=== PATIENT | female | born 1940 | race Caucasian/White ===

== ENCOUNTER 2017-09-29 21:16 | Inpatient (IN) | payer MEDICARE, MEDICAID ==
--- NOTE | 2017-09-29 21:50 | C.PDOC ---
History Of Present Illness 77 year old female is brought in by EMS accompanied by her daughter for evaluation. As per daughter she went to visit her mother today when she noticed she was not acting like herself and was slightly confused. Upon arrival patient is AOx3, a bit slow to respond. Patient is c/o mild cough and fever. Patient denies injury, fall, trauma, CP, SOB, weakness, numbness. Time Seen by Provider: 09/29/17 21:34 Chief Complaint (Nursing): Medical Clearance History Per: Patient, EMS History/Exam Limitations: no limitations Onset/Duration Of Symptoms: Days Current Symptoms Are (Timing): Still Present Recent travel outside of the [place]: No Additional History Per: Patient Past Medical History Reviewed: Historical Data, Nursing Documentation, Vital Signs Vital Signs: Last Vital Signs Temp 98.2 F 09/29/17 23:05 Pulse 89 09/29/17 23:47 Resp 28 H 09/29/17 23:47 BP 133/37 L 09/29/17 23:47 Pulse Ox 98 09/29/17 23:47 - Medical History PMH: Anxiety, Arthritis, Atrial Fibrillation, CAD, CHF, Depression, Diabetes, Fractures, HTN, Hypercholesterolemia, Peripheral Edema Denies: Alzheimer's Disease, Anemia, Asthma, Bipolar Disorder, Bronchitis, Cardia Arrhythmia, COPD, Crohn's Disease, Dementia, Diverticulitis, Emphysema, Gastritis, Gall Bladder Disease, HIV, Hyperthyroidism, Hypothyroidism, Kidney Stones, Migraine, Mitral Valve Prolapse, Multiple Sclerosis, Osteoporosis, Pancreatitis, Parkinson's Disease, Personality Disorder, Pneumonia, Pulmonary Embolism, Chronic Kidney Disease, Rheumatoid Arthritis, Schizophrenia, Seizures , Sickle Cell Disease, Sexually Transmitted Disease, Sleep Apnea, TIA Surgical History: Appendectomy (SURG AT AGE 13), Pacemaker Denies: CABG, Carotid Endarterectomy, Cholecystectomy, Coronary Stent, Tonsillectomy - [facility] Procedures INDIVID PSYCHOTHERAP NEC (08/12/14) INFLUENZA VACCINATION (02/16/14) NON-INVASIVE MECHANICAL VENTILATION (08/07/14) OTHER GROUP THERAPY (08/12/14) VACCINATION NEC (02/16/14) Family History: States: No Known Family Hx - Social History Hx Tobacco Use: No Hx Alcohol Use: No Hx Substance Use: No - Immunization History Hx Tetanus Toxoid Vaccination: No Hx Influenza Vaccination: No Hx Pneumococcal Vaccination: No Review Of Systems Constitutional: Positive for: Fever. Negative for: Chills Cardiovascular: Negative for: Chest Pain, Palpitations Respiratory: Positive for: Cough. Negative for: Shortness of Breath Gastrointestinal: Negative for: Nausea, Vomiting Skin: Negative for: Rash Neurological: Positive for: Confusion. Negative for: Weakness, Numbness, Headache, Dizziness Physical Exam - Physical Exam Appears: Non-toxic, No Acute Distress Skin: Warm, Dry Head: Normacephalic Eye(s): bilateral: Normal Inspection Oral Mucosa: Dry Neck: Supple Chest: Symmetrical, Other (defibrillator to the left chest wall) Cardiovascular: Rhythm Regular Respiratory: No Rales, Rhonchi (scattered at the base), No Wheezing Gastrointestinal/Abdominal: Bowel Sounds (active), Soft, No Tenderness, No Guarding, No Rebound Back: Normal Inspection Extremity: Pedal Edema (trace B/L), Capillary Refill (< 2 seconds) Extremity: Bilateral: Atraumatic Pulses: Left Dorsalis Pedis: Normal, Right Dorsalis Pedis: Normal Neurological/Psych: Oriented x3, Slow To Respond With Command, Other (non focal) Gait: Unable To Assess ED Course And Treatment - Laboratory Results Result Diagrams: 09/29/17 21:49 09/29/17 21:49 ECG: Interpreted By Me, Viewed By Me ECG Rhythm: Sinus Rhythm (93), Nonspecific Changes (atrial sensed ventricular paced rhytm) O2 Sat by Pulse Oximetry: 94 (ON RA) Pulse Ox Interpretation: Normal - Radiology CXR: Interpreted by Me, Viewed By Me CXR Interpretation: Yes: Other (pacer left chest). No: Infiltrates, Fracture, Pnemothorax Progress Note: Plan: - VBG. - CT head. - EKG. - Labs. - CXR. - Blood culture Disposition Discussed With : Roz Lunsford Comment: accepted the pt on his service and took over the care at 11:20 PM Doctor Will See Patient In The: Hospital Counseled Patient/Family Regarding: Studies Performed, Diagnosis - Disposition Disposition: HOSPITALIZED Disposition Time: 23:20 Condition: FAIR Forms: [facility] (Eritrean) - POA Present On Arrival: None - Clinical Impression Clinical Impression: Change in mental status, UTI (urinary tract infection), Renal insufficiency - Scribe Statement The provider has reviewed the documentation as recorded by the Scribe Hardeep Le All medical record entries made by the Scribe were at my direction and personally dictated by me. I have reviewed the chart and agree that the record accurately reflects my personal performance of the history, physical exam, medical decision making, and the department course for this patient. I have also personally directed, reviewed, and agree with the discharge instructions and disposition. Decision To Admit - Pt Status Changed To: Hospital Disposition Of: Inpatient - Admit Certification Admit to Inpatient:: After my assessment, the patient will require hospitalization for at least two midnights. This is because of the severity of symptoms shown, intensity of services needed, and/or the medical risk in this patient being treated as an outpatient. - InPatient: Physician Admission Certification: I certify that this patient requires 2 or more midnights of care for the following reason:: After my assessment, the patient will require hospitalization for at least two midnights. This is because of the severity of symptoms shown, intensity of services needed, and/or the medical risk in this patient being treated as an outpatient. - . Bed Request Type: Regular Admitting Physician: Roz Lunsford Patient Diagnosis: Change in mental status, UTI (urinary tract infection), Renal insufficiency
[2017-09-29 21:54] LABS: BASO % 0.2 % (0.0-2.0); EOS % 0.2 % (0.0-4.0); LYMPH # 0.9 K/uL (1.0-4.3); LYMPH % 9.1 % (20.0-40.0); MEAN CORPUSCULAR HEMOGLOBIN 31.8 pg (27.0-31.0); MEAN CORPUSCULAR HGB CONC 33.9 g/dL (33.0-37.0); MEAN PLATELET VOLUME 7.2 fL (7.2-11.7); MONO # 0.4 K/uL (0.0-0.8); MONO % 4.5 % (0.0-10.0); NEUT # 8.4 K/uL (1.8-7.0); PLATELET COUNT 214 K/uL (130-400); RBC 4.08 Mil/uL (3.80-5.20)
[2017-09-29 21:56] LABS: WHITE BLOOD COUNT 9.7 K/uL (4.8-10.8)
[2017-09-29] MEDS ORDERED: Sodium Chloride 0.9% 1,000 ML ONE (21:57)
[2017-09-29] MEDS: Sodium Chloride 0.9% 1,000 ML IV SCH (21:58)
[2017-09-29 22:02] LABS: VENOUS BLOOD GAS BASE EXCESS 10.8 mmol/L (0.0-2.0); VENOUS BLOOD GAS PCO2 58 mmHg (40-60); VENOUS BLOOD GAS PO2 22 mm/Hg (30-55); VENOUS BLOOD PH 7.42 (7.32-7.43)
[2017-09-29] MEDS ORDERED: Piperacillin/Tazobact 3.375 gm 100 ML IVPB STA (22:06)
[2017-09-29 22:07] LABS: CALCIUM 10.1 mg/dl (8.6-10.4)
[2017-09-29 22:08] LABS: ALB/GLOB RATIO 0.9 (1.0-2.1); ALBUMIN 4.2 g/dL (3.5-5.0)
[2017-09-29] MEDS ORDERED: Vancomycin 1 gm/NS 200 ml 1 GM/200 ML BAG IVPB ONE (22:15)
[2017-09-29] MEDS ORDERED: Vancomycin 1 GM 1 GM/250 ML BAG IVPB SCH (22:15)
[2017-09-29 22:23] LABS: ANISOCYTOSIS SLIGHT; BANDS 1 % (0-2); HYPOCHROMIC SLIGHT; LARGE PLATELETS PRESENT; LYMPHOCYTE 10 % (20-40); MONOCYTE 4 % (0-10); NEUTROPHIL 85 % (50-75); PLATELET ESTIMATE NORMAL (NORMAL); TOTAL CELLS COUNTED 100
[2017-09-29] MEDS ORDERED: Piperacillin/Tazobact 3.375 gm 100 ML IVPB ONE (22:27)
[2017-09-29 22:57] LABS: URINE BACTERIA FEW (<OCC); URINE BILIRUBIN NEGATIVE (NEGATIVE); URINE BLOOD 3+ (NEGATIVE); URINE CLARITY Hazy (Clear); URINE COLOR Amber (YELLOW); URINE GLUCOSE (UA) NORMAL (Normal); URINE LEUKOCYTE ESTERASE 2+ Leu/uL (Negative); URINE PROTEIN 2+ mg/dL (NEGATIVE); URINE UROBILINOGEN NORMAL mg/dL (0.2-1.0)
[2017-09-29 22:58] LABS: INR 1.5; PROTHROMBIN TIME 15.9 SECONDS (9.7-12.2)
--- NOTE | 2017-09-29 23:06 | CT ---
EXAM: CT Head Without Intravenous Contrast CLINICAL HISTORY: 77 years old, female; Pain; Headache; Patient HX: 15; Additional info: Change mental status TECHNIQUE: Axial computed tomography images of the head/brain without intravenous contrast. All CT scans at this facility use one or more dose reduction techniques, viz.: automated exposure control; ma/kV adjustment per patient size (including targeted exams where dose is matched to indication; i.e. head); or iterative reconstruction technique. COMPARISON: CT - HEAD W/O CONTRAST 2014-08-12 11:23 FINDINGS: Brain: Mild atrophy. No intracranial hemorrhage. No mass. Few scattered foci of decreased attenuation within periventricular/subcortical white matter. Probable chronic lacunar infarct about LEFT basal ganglia. No definite edema. Ventricles: No hydrocephalus. Bones/joints: No acute fracture. Soft tissues: Unremarkable. Vasculature: Minimal atherosclerotic disease of intracranial arteries. Sinuses: No acute sinusitis. Mastoid air cells: No mastoid effusion. Orbits: Unremarkable as visualized. IMPRESSION: 1. Nonspecific white matter changes. Acute infarction may be CT occult within first 24 hours. If a focal deficit persists, consider followup CT or MRI for further evaluation. 2. Incidental/non-acute findings are described above.
[2017-09-29] MEDS ORDERED: Sod Polystyrene Sulf 15 gm/60 ml Susp PO ONE (23:39)
[2017-09-30] MEDS ORDERED: Albuterol-Ipratrop 3 mg / 0.5 (3 ml) UD ONE (02:11)
[2017-09-30] MEDS: Albuterol-Ipratrop 3 mg / 0.5 (3 ml) UD INH SCH ×5 (02:25→20:46)
[2017-09-30] MEDS: Piperacill/Tazo 2.25gm in Dex 2.25 GM/50 ML BAG IVPB SCH ×3 (05:36→22:53)
--- NOTE | 2017-09-30 08:25 | RAD ---
PROCEDURE: CHEST RADIOGRAPH, 1 VIEW HISTORY: SOB COMPARISON: Chest radiographs 08/11/2014. FINDINGS: LUNGS: Diminished inspiratory volume noted. There is resulting crowding of bilateral basilar bronchovascular markings. No interval airspace disease otherwise evident however. PLEURA: No pneumothorax or pleural fluid seen. CARDIOVASCULAR: Normal cardiac size once again. Pacemaker/implanted defibrillator replaced by is different generator the left pectoralis region and 2 additional leads extending into the heart region. OSSEOUS STRUCTURES: No significant abnormalities. VISUALIZED UPPER ABDOMEN: Normal. OTHER FINDINGS: None. IMPRESSION: Diminished inspiratory volume noted. No interval infiltrate bilaterally. Pacemaker exchange noted.
[2017-09-30 08:40] LABS: BASO % 0.4 % (0.0-2.0); EOS % 0.6 % (0.0-4.0); HEMOGLOBIN 11.5 g/dL (11.0-16.0); LYMPH # 1.2 K/uL (1.0-4.3); LYMPH % 14.3 % (20.0-40.0); MEAN CELL VOLUME 94.6 fL (81.0-99.0); MEAN CORPUSCULAR HGB CONC 33.8 g/dL (33.0-37.0); MEAN PLATELET VOLUME 7.7 fL (7.2-11.7); MONO # 0.8 K/uL (0.0-0.8); MONO % 9.1 % (0.0-10.0); NEUT # 6.3 K/uL (1.8-7.0); NEUT % 75.6 % (50.0-75.0); NRBC % 0.1 % (0.0-2.0); RBC 3.59 Mil/uL (3.80-5.20); RED CELL DISTRIBUTION WIDTH 14.2 % (11.5-14.5); WHITE BLOOD COUNT 8.4 K/uL (4.8-10.8)
[2017-09-30 08:53] LABS: ALBUMIN 3.3 g/dL (3.5-5.0); CALCIUM 9.3 mg/dl (8.6-10.4)
[2017-09-30] MEDS: Sodium Chloride 0.9% 1,000 ML IV SCH ×3 (10:33→18:32)
[2017-09-30] MEDS: Venlafaxine 75 mg ER Cap PO SCH (10:38)
[2017-09-30] MEDS: Venlafaxine 150 mg ER Cap PO SCH (18:30)
--- NOTE | 2017-09-30 19:06 | CP.PCM.HP ---
History of Present Illness - History of Present Illness History of Present Illness: Chief complain: Altered mental status HPI: 77-year-old female with a history of hypertension diabetes Crory artery disease high cholesterol atrial fibrillation pacemaker, V. tach and is status post AICD , anxiety, depression. Arthritis, weakness and dementia. Patient was in her usual state of health. Yesterday she was started having some slowing in her activities, evening time she was not responding. She was not eating well. According to the patient's daughter while she came to check her up in the house she was on the bed, but unable to get up. She was trying to get out of the chair, see slide and fell on the floor. But the patient's family was next to her, able to grab her and place her on the bed. Called ambulance, brought into the emergency room. Patient was continued to have altered mental status in the emergency room. Evaluation was done. CAT scan were negative Suspected urinary tract infection, needed hospitalization. Today morning patient was feeling well. She was more awake and responding. She has no chest pain. Denies any nausea vomiting no fever noted Past medical history: Hypertension, diabetes, high cholesterol, CAD, atrial fibrillation, V. tach, status post ACD, depression and anxiety Allergies no known drug allergy Personal history: Lifelong nonsmoker nonalcoholic Patient lives in the family members. Surgical history: Bilateral knee replacement. Pacemaker ACD Family history noncontributory Review of systems noted from the chart. Mild headache. Dementia noted, no chest pain, shortness of breath noted occasionally. Complaining of generalized body pain. Patient had altered mental status yesterday, currently feeling well. Examination: Vital signs stable. Chest good air entry Regular heart sound nontender abdomen no pedal edema [employer] alert awake oriented Patient is now alert awake, oriented to place and person and time Labs reviewed Urine analysis showing evidence of elevated WBC, positive bacteria CAT scan of the head is negative, chest x-ray nonspecific Assessment and recommendation: 77-year-old female with a history of hypertension diabetes high cholesterol CAD status post ACD. Atrial fibrillation. Admitted now with a possible urinary tract infection, contributing the altered mental status. Improving at this time, on ciprofloxacin empirical antibiotic. Will get the urine culture. Urine analysis. Patient will need physical therapy. Awaiting further culture and will follow the patient I spoke to the patient's family in detail Present on Admission - Present on Admission Any Indicators Present on Admission: No History of DVT/PE: No History of Uncontrolled Diabetes: No Urinary Catheter: No Decubitus Ulcer Present: No Past Patient History - Infectious Disease Hx of Infectious Diseases: None - Tetanus Immunizations Tetanus Immunization: Unknown - Past Medical History & Family History Past Medical History?: Yes - Past Social History Smoking Status: Never Smoked - CARDIAC Hx Atrial Fibrillation: Yes Hx Cardia Arrhythmia: No Hx Congestive Heart Failure: Yes Hx Hypercholesterolemia: Yes Hx Hypertension: Yes Hx Mitral Valve Prolapse: No Hx Pacemaker: Yes Hx Peripheral Edema: Yes - PULMONARY Hx Asthma: No Hx Bronchitis: No Hx Chronic Obstructive Pulmonary Disease (COPD): No Hx Emphysema: No Hx Pneumonia: No Hx Pulmonary Embolism: No Hx Sleep Apnea: No - NEUROLOGICAL Hx Alzheimer's Disease: No Hx Dementia: No Hx Migraine: No Hx Multiple Sclerosis: No Hx Parkinson's Disease: No Hx Seizures: No Hx Transient Ischemic Attacks (TIA): No - HEENT Hx HEENT Problems: No - RENAL Hx Chronic Kidney Disease: No Hx Kidney Stones: No - ENDOCRINE/METABOLIC Hx Hyperthyroidism: No Hx Hypothyroidism: No - HEMATOLOGICAL/ONCOLOGICAL Hx Anemia: No Hx Human Immunodeficiency Virus (HIV): No Hx Sickle Cell Disease: No - INTEGUMENTARY Hx Dermatological Problems: No - MUSCULOSKELETAL/RHEUMATOLOGICAL Hx Arthritis: Yes Hx Falls: Yes Hx Fractures: Yes Hx Osteoporosis: No Hx Rheumatoid Arthritis: No - GASTROINTESTINAL Hx Crohn's Disease: No Hx Diverticulitis: No Hx Gall Bladder Disease: No Hx Gastritis: No Hx Pancreatitis: No - GENITOURINARY/GYNECOLOGICAL Hx Sexually Transmitted Disorders: No - PSYCHIATRIC Hx Anxiety: Yes Hx Bipolar Disorder: No Hx Depression: Yes Hx Schizophrenia: No Hx Substance Use: No - SURGICAL HISTORY Hx Appendectomy: Yes (SURG AT AGE 13) Hx Carotid Endarterectomy: No Hx Cholecystectomy: No Hx Coronary Artery Bypass Graft: No Hx Coronary Stent: No Hx Tonsillectomy: No - ANESTHESIA Hx Anesthesia: Yes Hx Anesthesia Reactions: No Hx Malignant Hyperthermia: No Meds Allergies/Adverse Reactions: Allergies Allergy/AdvReac Type Severity Reaction Status Date / Time No Known Allergies Allergy Verified 09/29/17 21:25 Results - Vital Signs Recent Vital Signs: Last Vital Signs Temp 99.3 F 09/30/17 16:00 Pulse 92 H 09/30/17 16:00 Resp 20 09/30/17 16:00 BP 107/68 05/28/18 18:31 Pulse Ox 96 09/30/17 16:00 - Labs Result Diagrams: 09/30/17 08:36 09/30/17 08:22 Labs: Laboratory Results - last 24 hr 09/29/17 09/29/17 09/29/17 21:30 21:49 21:49 WBC 9.7 D RBC 4.08 Hgb 13.0 Hct 38.4 MCV 94.0 MCH 31.8 H MCHC 33.9 RDW 14.0 Plt Count 214 MPV 7.2 Neut % (Auto) 86.0 H Lymph % (Auto) 9.1 L Menard % (Auto) 4.5 Eos % (Auto) 0.2 Baso % (Auto) 0.2 Neut # (Auto) 8.4 H Lymph # (Auto) 0.9 L Menard # (Auto) 0.4 Eos # (Auto) 0.0 Baso # (Auto) 0.0 Neutrophils % (Manual) 85 H Band Neutrophils % 1 Lymphocytes % (Manual) 10 L Monocytes % (Manual) 4 Platelet Estimate Normal Large Platelets Present Hypochromasia (manual) Slight Anisocytosis (manual) Slight PT INR APTT pO2 VBG pH VBG pCO2 VBG HCO3 VBG Total CO2 VBG O2 Sat (Calc) VBG Base Excess VBG Potassium Glucose Lactate Sodium 134 Potassium 5.7 H Chloride 90 L Carbon Dioxide 31 H Anion Gap 19 BUN 28 H Creatinine 1.9 H Est GFR ( Amer) 31 Est GFR (Non-Af Amer) 26 POC Glucose (mg/dL) 223 H Random Glucose 205 H Calcium 10.1 Magnesium 2.1 Total Bilirubin 1.2 AST 60 H ALT 26 Alkaline Phosphatase 87 Total Protein 8.9 H Albumin 4.2 Globulin 4.8 H Albumin/Globulin Ratio 0.9 L Venous Blood Potassium Urine Color Urine Clarity Urine pH Ur Specific Hilbert Urine Protein Urine Glucose (UA) Urine Ketones Urine Blood Urine Nitrate Urine Bilirubin Urine Urobilinogen Ur Leukocyte Esterase Urine WBC (Auto) Urine RBC (Auto) Urine Bacteria 09/29/17 09/29/17 09/29/17 21:58 22:46 22:46 WBC RBC Hgb Hct MCV MCH MCHC RDW Plt Count MPV Neut % (Auto) Lymph % (Auto) Menard % (Auto) Eos % (Auto) Baso % (Auto) Neut # (Auto) Lymph # (Auto) Menard # (Auto) Eos # (Auto) Baso # (Auto) Neutrophils % (Manual) Band Neutrophils % Lymphocytes % (Manual) Monocytes % (Manual) Platelet Estimate Large Platelets Hypochromasia (manual) Anisocytosis (manual) PT 15.9 H INR 1.5 APTT 42 H pO2 22 L VBG pH 7.42 VBG pCO2 58 VBG HCO3 31.8 VBG Total CO2 39.4 H VBG O2 Sat (Calc) 34.0 L VBG Base Excess 10.8 H VBG Potassium 4.1 Glucose 199 H Lactate 3.8 H Sodium 136.0 Potassium Chloride 96.0 L Carbon Dioxide Anion Gap BUN Creatinine Est GFR ( Amer) Est GFR (Non-Af Amer) POC Glucose (mg/dL) Random Glucose Calcium Magnesium Total Bilirubin AST ALT Alkaline Phosphatase Total Protein Albumin Globulin Albumin/Globulin Ratio Venous Blood Potassium 4.1 Urine Color Urvashi Urine Clarity Hazy Urine pH 6.0 Ur Specific Hilbert 1.012 Urine Protein 2+ H Urine Glucose (UA) Normal Urine Ketones Negative Urine Blood 3+ H Urine Nitrate Negative Urine Bilirubin Negative Urine Urobilinogen Normal Ur Leukocyte Esterase 2+ H Urine WBC (Auto) 399 H Urine RBC (Auto) 325 H Urine Bacteria Few H 09/30/17 09/30/17 08:22 08:36 WBC 8.4 RBC 3.59 L Hgb 11.5 Hct 34.0 MCV 94.6 MCH 32.0 H MCHC 33.8 RDW 14.2 Plt Count 169 MPV 7.7 Neut % (Auto) 75.6 H Lymph % (Auto) 14.3 L Menard % (Auto) 9.1 Eos % (Auto) 0.6 Baso % (Auto) 0.4 Neut # (Auto) 6.3 Lymph # (Auto) 1.2 Menard # (Auto) 0.8 Eos # (Auto) 0.0 Baso # (Auto) 0.0 Neutrophils % (Manual) Band Neutrophils % Lymphocytes % (Manual) Monocytes % (Manual) Platelet Estimate Large Platelets Hypochromasia (manual) Anisocytosis (manual) PT INR APTT pO2 VBG pH VBG pCO2 VBG HCO3 VBG Total CO2 VBG O2 Sat (Calc) VBG Base Excess VBG Potassium Glucose Lactate Sodium 138 Potassium 4.0 Chloride 98 Carbon Dioxide 29 Anion Gap 15 BUN 28 H Creatinine 2.0 H Est GFR ( Amer) 29 Est GFR (Non-Af Amer) 24 POC Glucose (mg/dL) Random Glucose 137 H Calcium 9.3 Magnesium Total Bilirubin 0.5 AST 31 ALT 25 Alkaline Phosphatase 72 Total Protein 7.3 Albumin 3.3 L D Globulin 3.4 Albumin/Globulin Ratio 1.0 Venous Blood Potassium Urine Color Urine Clarity Urine pH Ur Specific Hilbert Urine Protein Urine Glucose (UA) Urine Ketones Urine Blood Urine Nitrate Urine Bilirubin Urine Urobilinogen Ur Leukocyte Esterase Urine WBC (Auto) Urine RBC (Auto) Urine Bacteria
[2017-10-01] MEDS: Albuterol-Ipratrop 3 mg / 0.5 (3 ml) UD INH SCH ×4 (01:40→20:44)
[2017-10-01] MEDS: Sodium Chloride 0.9% 1,000 ML IV SCH (03:45)
[2017-10-01] MEDS: Piperacill/Tazo 2.25gm in Dex 2.25 GM/50 ML BAG IVPB SCH ×3 (07:27→21:51)
[2017-10-01] MEDS: Venlafaxine 75 mg ER Cap PO SCH (10:09)
[2017-10-01] MEDS: Venlafaxine 150 mg ER Cap PO SCH (17:47)
--- NOTE | 2017-10-01 20:41 | CP.PCM.PN ---
Subjective - Date & Time of Evaluation Date of Evaluation: 10/01/17 Time of Evaluation: 20:38 - Subjective Subjective: Patient now is more awake and responding. Comfortable. Complaining of pain in the lower pelvic area. Denies any chest pain. No shortness of breath. Edema in the legs noted. Venous access is currently poorly On examination: Chest good air entry bilaterally, not in any distress. Saturation is normal. Vital signs are stable, except her blood pressure is on the low side. Labs reviewed Blood culture showing evidence of Enterococcus faecalis, but urine culture is pending. Repeat analysis of the urine and urine culture pending. Currently patient is on Zosyn. Assessment and recommendation: 77-year-old female with a history of heart disease heart failure ACD and pacemaker. Anxiety depression. Hypertension. Admitted with a chronic pedal edema Patient admitted to the hospital with severe urinary tract infection, acute complicated with bacteremia. And also mild hypotension stable at this time. Possible septic shock could not be ruled out at that time, currently improving. Patient is now having enterococcus bacteremia, will get a echocardiogram. To rule out endocarditis. Appropriate antibiotic as per the infectious disease evaluation. Meanwhile most likely cause for this enterococcus is urinary tract infection. We'll follow the patient. Physical therapy order. Out of bed to chair tomorrow. Spoke to the patient's daughter in detail Objective - Vital Signs/Intake and Output Vital Signs (last 24 hours): Temp Pulse Resp BP Pulse Ox 98.1 F 87 20 110/74 96 10/01/17 16:00 10/01/17 16:00 10/01/17 16:00 10/01/17 17:48 10/01/17 16:00 Intake and Output: 10/01/17 10/02/17 18:59 06:59 Intake Total 2069 Balance 2069 - Medications Medications: Current Medications Acetaminophen (Tylenol 325mg Tab) 650 mg PO Q8 PRN PRN Reason: pain Albuterol/Ipratropium (Duoneb 3 Mg/0.5 Mg (3 Ml) Ud) 3 ml INH RQ6 [facility] Last Admin: 10/01/17 13:52 Dose: Not Given Apixaban (Eliquis) 2.5 mg PO BID [facility] Last Admin: 10/01/17 17:48 Dose: 2.5 mg Enalapril Maleate (Vasotec) 10 mg PO DAILY [facility] Last Admin: 10/01/17 10:09 Dose: Not Given Piperacillin Sod/Tazobactam Sod (Zosyn 2.25 Gm Iv Premix) 2.25 gm in 50 mls @ 100 mls/hr IVPB Q8 ALEX PRN Reason: Protocol Last Admin: 10/01/17 14:43 Dose: 100 mls/hr Lorazepam (Ativan) 0.5 mg PO TID PRN PRN Reason: Agitation Metoprolol Tartrate (Lopressor) 25 mg PO BID [facility] Last Admin: 10/01/17 17:48 Dose: 25 mg Mirtazapine (Remeron) 45 mg PO HS [facility] Last Admin: 09/30/17 22:52 Dose: 45 mg Pantoprazole Sodium (Protonix Inj) 40 mg IVP DAILY [facility] Last Admin: 10/01/17 10:08 Dose: 40 mg Rosuvastatin Calcium (Crestor) 10 mg PO HS [facility] Last Admin: 09/30/17 21:31 Dose: 10 mg Venlafaxine HCl (Effexor Xr) 75 mg PO QAM [facility] Last Admin: 10/01/17 10:09 Dose: 75 mg Venlafaxine HCl (Effexor Xr) 150 mg PO QPM [facility] Last Admin: 10/01/17 17:47 Dose: 150 mg - Labs Labs: 09/30/17 08:36 09/30/17 08:22 PT 15.9 SECONDS (9.7-12.2) H 09/29/17 22:46 INR 1.5 09/29/17 22:46 APTT 42 SECONDS (21-34) H 09/29/17 22:46
[2017-10-01] MEDS ORDERED: DAPTOmycin 500 mg Inj (Cubicin) IV SCH (23:00)
[2017-10-02] MEDS: Albuterol-Ipratrop 3 mg / 0.5 (3 ml) UD INH SCH ×4 (01:43→20:03)
[2017-10-02] MEDS: Piperacill/Tazo 2.25gm in Dex 2.25 GM/50 ML BAG IVPB SCH ×3 (06:02→21:29)
[2017-10-02 07:21] LABS: BASO % 0.7 % (0.0-2.0); EOS # 0.1 K/uL (0.0-0.7); EOS % 2.9 % (0.0-4.0); HEMOGLOBIN 10.7 g/dL (11.0-16.0); LYMPH # 0.9 K/uL (1.0-4.3); LYMPH % 18.2 % (20.0-40.0); MEAN CELL VOLUME 93.3 fL (81.0-99.0); MEAN CORPUSCULAR HEMOGLOBIN 32.1 pg (27.0-31.0); MEAN CORPUSCULAR HGB CONC 34.4 g/dL (33.0-37.0); MEAN PLATELET VOLUME 7.7 fL (7.2-11.7); MONO # 0.5 K/uL (0.0-0.8); MONO % 10.8 % (0.0-10.0); NEUT # 3.3 K/uL (1.8-7.0); NEUT % 67.4 % (50.0-75.0); RBC 3.35 Mil/uL (3.80-5.20); RED CELL DISTRIBUTION WIDTH 13.8 % (11.5-14.5); WHITE BLOOD COUNT 4.9 K/uL (4.8-10.8)
[2017-10-02 07:47] LABS: ALBUMIN 3.4 g/dL (3.5-5.0); CALCIUM 8.1 mg/dl (8.6-10.4)
[2017-10-02] MEDS: Venlafaxine 75 mg ER Cap PO SCH (10:42)
--- NOTE | 2017-10-02 11:32 | CP.PCM.CON ---
History of Present Illness - History of Present Illness History of Present Illness: INFECTIOUS DISEASE CONSULT; HPI; .77-year-old female with history of multiple medical problems including diabetes , CAD, atrial fibrillation S/P CABG/AICD, coronary stent, CHF, arthritis, hypertension, hypercholesterolemia and anxiety problems was admitted by the emergency room brought in by family members for altered mental status and elevated temperatures. A presumptive diagnosis of UTI was entertained as patient had pyuria and also elevated BUN and creatinine of 28/2.0. Infectious disease consultation requested by private [facility] as BLOOD CULTURES came back positive for gram-positive cocci-enterococcus species. Patient was started on IV Zosyn 2.25 mg IV every 8 hourly by the private [facility]. DAPTOMYCIN 6 MG/KG iv PIGGYBACK WAS INITIATED IN VIEW GRAM-POSITIVE BACTEREMIA ? R/O VRE. PATIENT COMPLAINS OF ABDOMINAL PAIN,MID ABDOMEN AND SUPRAPUBIC. PATIENT DENIES ANY NAUSEA OR VOMITING BUT COMPLAINS OF POOR APPETITE. PATIENT DENIES ANY COUGH OR EXPECTORATION. COMPLAINS OF CONSTIPATION AND STATES HAS NOT HAD A BOWEL MOVEMENT FOR PAST 2 DAYS.. PATIENT DENIES HEADACHE OR DENIES ANY RECENT UPPER RESPIRATORY TRACT INFECTION OR SORE THROAT. DENIES ANY TRAVEL OR SICK CONTACTS. iNITIALLY CT OF THE HEAD WITHOUT CONTRAST WAS NONSPECIFIC WHITE MATTER CHANGES. CHEST X-RAY NO ACUTE INFILTRATE, +VE PACEMAKER IN PLACE. PMH: Anxiety, Arthritis, Atrial Fibrillation, CAD, CHF, Depression, Diabetes, Fractures, HTN, Hypercholesterolemia, Peripheral Edema Denies: Alzheimer's Disease, Anemia, Asthma, Bipolar Disorder, Bronchitis, Cardia Arrhythmia, COPD, Crohn's Disease, Dementia, Diverticulitis, Emphysema, Gastritis, Gall Bladder Disease, HIV, Hyperthyroidism, Hypothyroidism, Kidney Stones, Migraine, Mitral Valve Prolapse, Multiple Sclerosis, Osteoporosis, Pancreatitis, Parkinson's Disease, Personality Disorder, Pneumonia, Pulmonary Embolism, Chronic Kidney Disease, Rheumatoid Arthritis, Schizophrenia, Seizures , Sickle Cell Disease, Sexually Transmitted Disease, Sleep Apnea, TIA Surgical History: Appendectomy (SURG AT AGE 13), Pacemaker Denies: CABG, Carotid Endarterectomy, Cholecystectomy, Coronary Stent, Tonsillectomy - [facility] Procedures INDIVID PSYCHOTHERAP NEC (08/12/14) INFLUENZA VACCINATION (02/16/14) NON-INVASIVE MECHANICAL VENTILATION (08/07/14) OTHER GROUP THERAPY (08/12/14) VACCINATION NEC (02/16/14) Family History: States: No Known Family Hx - Social History Hx Tobacco Use: No Hx Alcohol Use: No Hx Substance Use: No - Immunization History Hx Tetanus Toxoid Vaccination: No Hx Influenza Vaccination: No Hx Pneumococcal Vaccination: No. ALLERGY;NKA.. Review of Systems - Constitutional Constitutional: Chills, Fever, Lethargy - EENT Eyes: absent: Change in Vision, Photophobia Nose/Mouth/Throat: absent: Sore Throat - Cardiovascular Cardiovascular: Rapid Heart Rate. absent: Chest Pain, Dyspnea - Respiratory Respiratory: Dyspnea. absent: Cough, Hemoptysis - Gastrointestinal Gastrointestinal: Abdominal Pain, Constipation - Genitourinary Genitourinary: Pyuria, Urinary Hesitance - Musculoskeletal Musculoskeletal: Muscle Cramps - Neurological Neurological: Disequilibrium. absent: Headaches - Psychiatric Psychiatric: Anxiety, Difficulty Concentrating - Hematologic/Lymphatic Hematologic: As Per HPI. absent: Lymphadenopathy Past Patient History - Infectious Disease Hx of Infectious Diseases: None - Tetanus Immunizations Tetanus Immunization: Unknown - Past Medical History & Family History Past Medical History?: Yes - Past Social History Smoking Status: Never Smoked - CARDIAC Hx Atrial Fibrillation: Yes Hx Cardia Arrhythmia: No Hx Congestive Heart Failure: Yes Hx Hypercholesterolemia: Yes Hx Hypertension: Yes Hx Mitral Valve Prolapse: No Hx Pacemaker: Yes Hx Peripheral Edema: Yes - PULMONARY Hx Asthma: No Hx Bronchitis: No Hx Chronic Obstructive Pulmonary Disease (COPD): No Hx Emphysema: No Hx Pneumonia: No Hx Pulmonary Embolism: No Hx Sleep Apnea: No - NEUROLOGICAL Hx Alzheimer's Disease: No Hx Dementia: No Hx Migraine: No Hx Multiple Sclerosis: No Hx Parkinson's Disease: No Hx Seizures: No Hx Transient Ischemic Attacks (TIA): No - HEENT Hx HEENT Problems: No - RENAL Hx Chronic Kidney Disease: No Hx Kidney Stones: No - ENDOCRINE/METABOLIC Hx Hyperthyroidism: No Hx Hypothyroidism: No - HEMATOLOGICAL/ONCOLOGICAL Hx Anemia: No Hx Human Immunodeficiency Virus (HIV): No Hx Sickle Cell Disease: No - INTEGUMENTARY Hx Dermatological Problems: No - MUSCULOSKELETAL/RHEUMATOLOGICAL Hx Arthritis: Yes Hx Falls: Yes Hx Fractures: Yes Hx Osteoporosis: No Hx Rheumatoid Arthritis: No - GASTROINTESTINAL Hx Crohn's Disease: No Hx Diverticulitis: No Hx Gall Bladder Disease: No Hx Gastritis: No Hx Pancreatitis: No - GENITOURINARY/GYNECOLOGICAL Hx Sexually Transmitted Disorders: No - PSYCHIATRIC Hx Anxiety: Yes Hx Bipolar Disorder: No Hx Depression: Yes Hx Schizophrenia: No Hx Substance Use: No - SURGICAL HISTORY Hx Appendectomy: Yes (SURG AT AGE 13) Hx Carotid Endarterectomy: No Hx Cholecystectomy: No Hx Coronary Artery Bypass Graft: No Hx Coronary Stent: No Hx Tonsillectomy: No - ANESTHESIA Hx Anesthesia: Yes Hx Anesthesia Reactions: No Hx Malignant Hyperthermia: No Meds Allergies/Adverse Reactions: Allergies Allergy/AdvReac Type Severity Reaction Status Date / Time No Known Allergies Allergy Verified 09/29/17 21:25 - Medications Medications: Current Medications Acetaminophen (Tylenol 325mg Tab) 650 mg PO Q8 PRN PRN Reason: pain Last Admin: 10/01/17 21:00 Dose: 650 mg Albuterol/Ipratropium (Duoneb 3 Mg/0.5 Mg (3 Ml) Ud) 3 ml INH RQ6 ON [facility] OF [facility] Last Admin: 10/02/17 07:29 Dose: Not Given Apixaban (Eliquis) 2.5 mg PO BID ON [facility] OF [facility] Last Admin: 10/02/17 09:57 Dose: 2.5 mg Docusate Sodium (Colace) 100 mg PO BID ON [facility] OF [facility] Enalapril Maleate (Vasotec) 10 mg PO DAILY ON [facility] OF [facility] Last Admin: 10/02/17 09:56 Dose: 10 mg Piperacillin Sod/Tazobactam Sod (Zosyn 2.25 Gm Iv Premix) 2.25 gm in 50 mls @ 100 mls/hr IVPB Q8 [facility]LEX PRN Reason: Protocol Last Admin: 10/02/17 06:02 Dose: 100 mls/hr Daptomycin 750 mg/ Sodium (Chloride) 100 mls @ 200 mls/hr IV Q24H ON [facility] OF [facility] Stop: 10/06/17 23:01 Last Admin: 10/01/17 23:11 Dose: 200 mls/hr Lorazepam (Ativan) 0.5 mg PO TID PRN PRN Reason: Agitation Last Admin: 10/02/17 01:10 Dose: 0.5 mg Metoprolol Tartrate (Lopressor) 25 mg PO BID [facility] Last Admin: 10/01/17 17:48 Dose: 25 mg Mirtazapine (Remeron) 45 mg PO HS [facility] Last Admin: 10/01/17 22:00 Dose: 45 mg Pantoprazole Sodium (Protonix Inj) 40 mg IVP DAILY [facility] Last Admin: 10/02/17 10:00 Dose: 40 mg Rosuvastatin Calcium (Crestor) 10 mg PO HS [facility] Last Admin: 10/01/17 21:50 Dose: 10 mg Venlafaxine HCl (Effexor Xr) 75 mg PO QAM [facility] Last Admin: 10/02/17 10:42 Dose: 75 mg Venlafaxine HCl (Effexor Xr) 150 mg PO QPM [facility] OF [facility] Last Admin: 10/01/17 17:47 Dose: 150 mg Physical Exam - Constitutional Appears: No Acute Distress - Head Exam Head Exam: NORMAL INSPECTION - Eye Exam Eye Exam: EOMI, PERRL - ENT Exam ENT Exam: Normal Oropharynx - Respiratory Exam Respiratory Exam: Clear to Auscultation Bilateral - Cardiovascular Exam Cardiovascular Exam: Irregular Rhythm, +S1, +S2 - GI/Abdominal Exam GI & Abdominal Exam: Normal Bowel Sounds, Soft, Tenderness (UMBLICAL AND SUPRAPUBIC.) - Extremities Exam Extremities exam: Positive for: pedal edema (2+), pedal pulses present. Negative for: calf tenderness - Neurological Exam Neurological exam: Alert, CN II-XII Intact, Oriented x3, Reflexes Normal - Psychiatric Exam Psychiatric exam: Normal Mood - Skin Skin Exam: Normal Color, Warm Results - Vital Signs Recent Vital Signs: Last Vital Signs Temp 97.6 F 10/02/17 08:00 Pulse 90 10/02/17 08:00 Resp 20 10/02/17 08:00 BP 140/87 10/02/17 09:56 Pulse Ox 95 10/02/17 08:00 - Labs Result Diagrams: 10/02/17 07:15 10/02/17 07:15 Labs: Laboratory Results - last 24 hr 10/02/17 10/02/17 07:15 07:15 WBC 4.9 RBC 3.35 L Hgb 10.7 L Hct 31.2 L MCV 93.3 MCH 32.1 H MCHC 34.4 RDW 13.8 Plt Count 186 MPV 7.7 Neut % (Auto) 67.4 Lymph % (Auto) 18.2 L Rock % (Auto) 10.8 H Eos % (Auto) 2.9 Baso % (Auto) 0.7 Neut # (Auto) 3.3 Lymph # (Auto) 0.9 L Rock # (Auto) 0.5 Eos # (Auto) 0.1 Baso # (Auto) 0.0 ESR 121 H Sodium 142 Potassium 3.9 Chloride 106 Carbon Dioxide 27 Anion Gap 13 BUN 18 H Creatinine 1.5 H Est GFR ( Amer) 41 Est GFR (Non-Af Amer) 33 Random Glucose 141 H Calcium 8.1 L Total Bilirubin 0.4 AST 29 ALT 20 Alkaline Phosphatase 68 C-Reactive Protein 71.20 H Total Protein 7.0 Albumin 3.4 L Globulin 3.5 Albumin/Globulin Ratio 1.0 - Imaging and Cardiology CT scan - head Status: Report reviewed by me (nonspecific white matter changes.) Assessment & Plan (1) Change in mental status Assessment and Plan: CT HEAD UNREMARKABLE WHITE MATTER CHANGES. pATIENT TODAY AND MORE RESPONSIVE AND ANSWERING SOME QUESTIONS APPROPRIATELY. Status: Acute (2) Enterococcal sepsis Assessment and Plan: BLOOD CULTURE 2:2 SETS +VE ENTEROCOCCAL FAECALIS SOURCE OF SEPSIS NOT CLEAR ? VS GI. Status: Acute (3) UTI (urinary tract infection) Assessment and Plan: UA 09/29/17 with pyuria and microscopic hematuria. Urine culture not sent. Urine culture REORDERED NOTED --PENDING Status: Acute (4) Renal insufficiency Assessment and Plan: CREATININE 2.0/ bun 28 GFR ; 24 MONITOR RENAL FUNCTIONS. iv FLUIDS PER pmd. Status: Acute (5) DM type 2 (diabetes mellitus, type 2) Status: Chronic Priority: Medium (6) HTN (hypertension) Status: Chronic Priority: Medium (7) Obesity Status: Chronic (8) Acute renal insufficiency Status: Acute Priority: High - Assessment and Plan (Free Text) Plan: PANCULTURES. ESR. CRP. MRSA SCREEN CONTINUE iv ZOSYN 2.25 iv PIGGYBACK EVERY 8 HOURLY 10/01/17. IV DAPTOMYCIN 6 MG/KG iv PIGGYBACK EVERY 36 HOURLY. 10/01/17. 2D- ECHO TO RULE OUT VEGETATIONS. c2, c4, ch 50 LEVELS RHEUMATOID FACTOR. FOLLOW-UP CULTURES TO ADJUST ANTIBIOTICS. WILL FOLLOW ALONG WITH YOU AND MAKE ADJUSTMENTS NEEDED. THANK YOU.
[2017-10-02] MEDS ORDERED: Bisacodyl 5mg EC Tab PO ONE (11:48)
[2017-10-02 13:15] LABS: SQUAMOUS EPITHIAL < 1 /hpf (0-5); URINE BILIRUBIN NEGATIVE (NEGATIVE); URINE BLOOD 2+ (NEGATIVE); URINE CLARITY Hazy (Clear); URINE COLOR Yellow (YELLOW); URINE GLUCOSE (UA) 3+ mg/dL (Normal); URINE LEUKOCYTE ESTERASE 3+ Leu/uL (Negative); URINE PROTEIN NEGATIVE (NEGATIVE); URINE UROBILINOGEN NORMAL mg/dL (0.2-1.0)
[2017-10-02] MEDS: Venlafaxine 150 mg ER Cap PO SCH (18:00)
--- NOTE | 2017-10-02 20:34 | CP.PCM.PN ---
Subjective - Date & Time of Evaluation Date of Evaluation: 10/02/17 Time of Evaluation: 20:31 - Subjective Subjective: Patient is a blood culture showing evidence of Enterococcus faecalis. Today patient had a significant difficulty in having BM. After lactulose, and Dulcolax suppository patient had 2 episodes of BM. She is feeling better now. Last night she did not sleep well. She was having some anxiety episodes, patient wanted to go home today. I discussed with the patient's daughter yesterday. Now patient is feeling well. She denies any chest pain, no shortness of breath, bilateral leg swelling noted On examination: Vital signs reviewed Stable at this time. Chest minimal bilateral wheezing noted, regular heart sound, abdomen nontender. It is 2+ pedal edema IV fluids discontinued Patient is currently receiving Zosyn, and qubicin. Patient was seen by infectious disease specialist. Labs reviewed Enterococcus faecalis bacteremia noted most likely from the urine. Echocardiogram pending Assessment and recommendation: 77-year-old female with a history of anxiety, depression, hypertension, cardiomyopathy, atrial fibrillation, AICD, V. tach, and renal insufficiency admitted with severe sepsis, likely from urinary tract infection, and associated bacteremia. Currently on IV antibiotic. Will get cardiology evaluation also. Discussed with the family regarding the IV antibiotic. Will discuss with the infectious disease for possibility of intravenous IV antibiotic at home. Will follow the patient Objective - Vital Signs/Intake and Output Vital Signs (last 24 hours): Temp Pulse Resp BP Pulse Ox 98 F 87 20 106/70 98 10/02/17 16:00 10/02/17 16:00 10/02/17 16:00 10/02/17 17:07 10/02/17 16:00 Intake and Output: 10/02/17 10/03/17 18:59 06:59 Intake Total 350 Balance 350 - Medications Medications: Current Medications Acetaminophen (Tylenol 325mg Tab) 650 mg PO Q8 PRN PRN Reason: pain Last Admin: 10/01/17 21:00 Dose: 650 mg Albuterol/Ipratropium (Duoneb 3 Mg/0.5 Mg (3 Ml) Ud) 3 ml INH RQ6 [facility] Last Admin: 10/02/17 20:03 Dose: Not Given Apixaban (Eliquis) 2.5 mg PO BID [facility] Last Admin: 10/02/17 17:07 Dose: 2.5 mg Docusate Sodium (Colace) 100 mg PO BID [facility] Last Admin: 10/02/17 17:06 Dose: 100 mg Enalapril Maleate (Vasotec) 10 mg PO DAILY [facility] Last Admin: 10/02/17 09:56 Dose: 10 mg Piperacillin Sod/Tazobactam Sod (Zosyn 2.25 Gm Iv Premix) 2.25 gm in 50 mls @ 100 mls/hr IVPB Q8 ALEX PRN Reason: Protocol Last Admin: 10/02/17 13:28 Dose: 100 mls/hr Daptomycin 750 mg/ Sodium (Chloride) 100 mls @ 200 mls/hr IV Q36H [facility] Stop: 10/08/17 12:01 Lorazepam (Ativan) 0.5 mg PO TID PRN PRN Reason: Agitation Last Admin: 10/02/17 16:40 Dose: 0.5 mg Metoprolol Tartrate (Lopressor) 25 mg PO BID [facility] Last Admin: 10/02/17 17:07 Dose: 25 mg Mirtazapine (Remeron) 45 mg PO HS [facility] Last Admin: 10/01/17 22:00 Dose: 45 mg Pantoprazole Sodium (Protonix Inj) 40 mg IVP DAILY [facility] Last Admin: 10/02/17 10:00 Dose: 40 mg Rosuvastatin Calcium (Crestor) 5 mg PO HS [facility] Venlafaxine HCl (Effexor Xr) 75 mg PO QAM [facility] Last Admin: 10/02/17 10:42 Dose: 75 mg Venlafaxine HCl (Effexor Xr) 150 mg PO QPM [facility] Last Admin: 10/01/17 17:47 Dose: 150 mg - Labs Labs: 10/02/17 07:15 10/02/17 07:15 PT 15.9 SECONDS (9.7-12.2) H 09/29/17 22:46 INR 1.5 09/29/17 22:46 APTT 42 SECONDS (21-34) H 09/29/17 22:46
[2017-10-03] MEDS: Albuterol-Ipratrop 3 mg / 0.5 (3 ml) UD INH SCH ×4 (01:42→19:30)
[2017-10-03] MEDS: Piperacill/Tazo 2.25gm in Dex 2.25 GM/50 ML BAG IVPB SCH ×3 (06:04→21:47)
[2017-10-03] MEDS: Venlafaxine 75 mg ER Cap PO SCH (10:03)
--- NOTE | 2017-10-03 14:12 | CP.PCM.PN ---
Subjective - Date & Time of Evaluation Date of Evaluation: 10/03/17 Time of Evaluation: 14:12 - Subjective Subjective: CHIEF COMPLAINTS TODAY : AFEBRILE, AAO FEELS MUCH BETTER ROS. HEENT : N. Resp : No SOB wheezing, cough Cardio : No CP, PND orthopnea GI : No abd. 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 Musculoskel : N Ext. : Pedal pulses intact, no edema or calf pain Derm : N Psych : N. PE. Pt. is alert awake in no distress. V.S As noted in the chart Head ,ear nose,throat and eyes : Normal. Neck : Supple with normal carotids. Lungs: Clear air entry. Heart : S1 & S2 normal . . No murmur. S4 + Abd : SOFT , NON TENDER ,with normal bowel sounds. Neuro : Moves all ext. with no localized deficit. Ext : No edema with intact pulses. Neg. calf tenderness Derm : No rashes or decubitus ulcer. Radiology/Labs reviewed.. ESR 121 CRP HIGH cREATININE 1.5/bun 18 LFTS -N NORMAL BLOOD CULTURES 2:2 SETS +VE ENTEROCOCCUS FAECALIS REPEAT BLOOD CULTURES 2:2 SETS -VE WITH 24 HOURS. Asssessment : s/p ALTERED MENTAL STATUS Gram-positive bacteremia-enterococcal faecalis sepsis- source most likely r/o occult intra-abdominal source. Urosepsis with pyuria. Diabetes [id number] RENAL INSFFICIENCY HTN. OBESITY. PLAN; CONTINUE iv DAPTOMYCIN 750 MG EVERY 36 HOURLY 10/02/17. CONTINUE iv ZOSYN 2.25 G iv PIGGYBACK EVERY 8 HOURLY . 10/02 17 2-D ECHO R/O VEGETATIONS CONSIDER CT OF THE ABDOMEN AND PELVIS WITH ORAL CONTRAST RULE OUT OCCULT COLLECTION OR MASS. CASE DISCUSSED WITH ATTENDING Objective - Vital Signs/Intake and Output Vital Signs (last 24 hours): Temp Pulse Resp BP Pulse Ox 97.6 F 80 20 138/74 100 10/03/17 08:13 10/03/17 08:13 10/03/17 08:13 10/03/17 10:03 10/03/17 08:13 Intake and Output: 10/03/17 10/03/17 06:59 18:59 Intake Total 170 Balance 170 - Medications Medications: Current Medications Acetaminophen (Tylenol 325mg Tab) 650 mg PO Q8 PRN PRN Reason: pain Last Admin: 10/01/17 21:00 Dose: 650 mg Albuterol/Ipratropium (Duoneb 3 Mg/0.5 Mg (3 Ml) Ud) 3 ml INH RQ6 [facility] Last Admin: 10/03/17 13:02 Dose: Not Given Apixaban (Eliquis) 2.5 mg PO BID [facility] Last Admin: 10/03/17 10:03 Dose: 2.5 mg Docusate Sodium (Colace) 100 mg PO BID [facility] Last Admin: 10/03/17 10:04 Dose: 100 mg Enalapril Maleate (Vasotec) 10 mg PO DAILY [facility] Last Admin: 10/03/17 10:03 Dose: 10 mg Piperacillin Sod/Tazobactam Sod (Zosyn 2.25 Gm Iv Premix) 2.25 gm in 50 mls @ 100 mls/hr IVPB Q8 ALEX PRN Reason: Protocol Last Admin: 10/03/17 06:04 Dose: 100 mls/hr Daptomycin 750 mg/ Sodium (Chloride) 100 mls @ 200 mls/hr IV Q36H [facility] Stop: 10/08/17 12:01 Last Admin: 10/03/17 12:25 Dose: 200 mls/hr Lorazepam (Ativan) 0.5 mg PO TID PRN PRN Reason: Agitation Last Admin: 10/02/17 16:40 Dose: 0.5 mg Metoprolol Tartrate (Lopressor) 25 mg PO BID [facility] Last Admin: 10/03/17 10:03 Dose: 25 mg Mirtazapine (Remeron) 45 mg PO HS [facility] Last Admin: 10/02/17 21:28 Dose: 45 mg Pantoprazole Sodium (Protonix Inj) 40 mg IVP DAILY [facility] Last Admin: 10/03/17 10:04 Dose: 40 mg Rosuvastatin Calcium (Crestor) 5 mg PO HS [facility] Last Admin: 10/02/17 21:28 Dose: 5 mg Venlafaxine HCl (Effexor Xr) 75 mg PO QAM [facility] Last Admin: 10/03/17 10:03 Dose: 75 mg Venlafaxine HCl (Effexor Xr) 150 mg PO QPM [facility] Last Admin: 10/02/17 18:00 Dose: 150 mg - Labs Labs: 10/02/17 07:15 10/02/17 07:15 PT 15.9 SECONDS (9.7-12.2) H 09/29/17 22:46 INR 1.5 09/29/17 22:46 APTT 42 SECONDS (21-34) H 09/29/17 22:46 Assessment and Plan (1) Change in mental status Status: Acute (2) Enterococcal sepsis Status: Acute (3) UTI (urinary tract infection) Status: Acute (4) Renal insufficiency Status: Acute (5) DM type 2 (diabetes mellitus, type 2) Status: Chronic (6) HTN (hypertension) Status: Chronic (7) Obesity Status: Chronic (8) Acute renal insufficiency Status: Acute
[2017-10-03] MEDS: Venlafaxine 150 mg ER Cap PO SCH (17:13)
[2017-10-04 00:59] VITALS: RESP 20
[2017-10-04] MEDS: Albuterol-Ipratrop 3 mg / 0.5 (3 ml) UD INH SCH ×2 (01:35→07:31)
--- NOTE | 2017-10-04 05:17 | CARD ---
APPROVED REPORT EXAM: LIMITED Two-dimensional and M-mode echocardiogram with Doppler and color Doppler. Other Information Quality : GoodRhythm : INDICATION Dyspnea Atrial Fibrillation Syncope RISK FACTORS Hypertension Obesity Diabetes 2D DIMENSIONS IVSd1.2 (0.7-1.1cm)LVDd4.4 (3.9-5.9cm) PWd1.0 (0.7-1.1cm)LVDs2.8 (2.5-4.0cm) FS (%) 36.4 %LVEF (%)66.3 (>50%) M-Mode DIMENSIONS Left Atrium (MM)4.09 (2.5-4.0cm)Aortic Root3.17 (2.2-3.7cm) Aortic Cusp Exc.1.96 (1.5-2.0cm) Mitral Valve MV E Hopslqvq08.0cm/sMV A Iizvfetm43.8cm/sE/A ratio0.7 TDI E/Lateral E'0.0E/Medial E'0.0 Tricuspid Valve TR Peak [id number]/sTR Peak Gr.[id number] LEFT VENTRICLE The left ventricle is normal size. There is normal left ventricular wall thickness. Left ventricle systolic function is normal. The Ejection Fraction is 65-70%. There is normal LV segmental wall motion. Tissue Doppler imaging reveals abnormal left ventricular diastolic dysfunction. No left ventricle thrombus noted on this study. RIGHT VENTRICLE The right ventricle is normal size. There is normal right ventricular wall thickness. The right ventricular systolic function is normal. ATRIA The left atrium size is normal. The right atrium size is normal. The interatrial septum is intact with no evidence for an atrial septal defect. AORTIC VALVE The aortic valve is normal in structure. No aortic regurgitation is present. There is no aortic valvular stenosis. There is no aortic valvular vegetation. MITRAL VALVE The mitral valve is normal in structure. There is no evidence of mitral valve prolapse. There is no mitral valve stenosis. Mitral regurgitation is mild. TRICUSPID VALVE The tricuspid valve is normal in structure. There is mild tricuspid regurgitation. Right ventricular systolic pressure is estimated at less than 30 mmHg. There is no pulmonary hypertension. PULMONIC VALVE The pulmonic valve is not well visualized. There is no pulmonic valvular regurgitation. GREAT VESSELS The aortic root is normal in size. PERICARDIAL EFFUSION There is no significant pericardial effusion. <Conclusion> Left ventricle systolic function is normal. The Ejection Fraction is 65-70%. Diastolic dysfunction. No aortic regurgitation is present. Mitral regurgitation is mild. There is mild tricuspid regurgitation. There is no pulmonary hypertension. There is no pulmonic valvular regurgitation.
[2017-10-04] MEDS: Piperacill/Tazo 2.25gm in Dex 2.25 GM/50 ML BAG IVPB SCH (06:54)
[2017-10-04 08:39] VITALS: PULSE 94; TEMP 98.7; O2SAT 96
--- NOTE | 2017-10-04 09:38 | CP.PCM.PN ---
Subjective - Date & Time of Evaluation Date of Evaluation: 10/03/17 Time of Evaluation: 14:00 - Subjective Subjective: Patient is very upset at this time. Patient's daughter at bedside. She's crying, she wanted to go home. She denies any chest pain. Abdominal pain minimally noted. Did not have a BM today. On examination: Vital signs are stable. Bilateral pedal edema noted Chest good air entry regular heart sound noted. Nontender abdomen Labs reviewed Blood culture positive for enterococcus, sensitive, to penicillin. Assessment/recommendation: 77-year-old female with history of depression, hypertension, congestive heart failure, AICD. Admitted with enterococci Natalie and urinary tract sepsis likely. Patient is adamant in being going home today. Discharge order was done. I spoke to the patient's daughter. Patient will be discharged home today. Objective - Vital Signs/Intake and Output Vital Signs (last 24 hours): Temp Pulse Resp BP Pulse Ox 98.7 F 94 H 20 166/79 H 96 10/04/17 08:00 10/04/17 08:00 10/04/17 08:00 10/04/17 08:00 10/04/17 08:00 Intake and Output: 10/04/17 10/04/17 06:59 18:59 Intake Total 100 Balance 100 - Medications Medications: Current Medications Acetaminophen (Tylenol 325mg Tab) 650 mg PO Q8 PRN PRN Reason: pain Last Admin: 10/01/17 21:00 Dose: 650 mg Albuterol/Ipratropium (Duoneb 3 Mg/0.5 Mg (3 Ml) Ud) 3 ml INH RQ6 [facility] Last Admin: 10/04/17 07:31 Dose: Not Given Apixaban (Eliquis) 2.5 mg PO BID [facility] Last Admin: 10/03/17 17:13 Dose: 2.5 mg Docusate Sodium (Colace) 100 mg PO BID [facility] Last Admin: 10/03/17 17:13 Dose: 100 mg Enalapril Maleate (Vasotec) 10 mg PO DAILY [facility] Last Admin: 10/03/17 10:03 Dose: 10 mg Piperacillin Sod/Tazobactam Sod (Zosyn 2.25 Gm Iv Premix) 2.25 gm in 50 mls @ 100 mls/hr IVPB Q8 ALEX PRN Reason: Protocol Last Admin: 10/04/17 06:54 Dose: Not Given Daptomycin 750 mg/ Sodium (Chloride) 100 mls @ 200 mls/hr IV Q36H [facility] Stop: 10/08/17 12:01 Last Admin: 10/03/17 12:25 Dose: 200 mls/hr Lorazepam (Ativan) 0.5 mg PO TID PRN PRN Reason: Agitation Last Admin: 10/02/17 16:40 Dose: 0.5 mg Metoprolol Tartrate (Lopressor) 25 mg PO BID [facility] Last Admin: 10/03/17 17:13 Dose: 25 mg Mirtazapine (Remeron) 45 mg PO HS [facility] Last Admin: 10/03/17 21:47 Dose: 45 mg Pantoprazole Sodium (Protonix Ec Tab) 40 mg PO DAILY [facility] Rosuvastatin Calcium (Crestor) 5 mg PO HS [facility] Last Admin: 10/03/17 22:00 Dose: 5 mg Venlafaxine HCl (Effexor Xr) 75 mg PO QAM [facility] Last Admin: 10/03/17 10:03 Dose: 75 mg Venlafaxine HCl (Effexor Xr) 150 mg PO QPM [facility] Last Admin: 10/03/17 17:13 Dose: 150 mg - Labs Labs: 10/02/17 07:15 10/02/17 07:15 PT 15.9 SECONDS (9.7-12.2) H 09/29/17 22:46 INR 1.5 09/29/17 22:46 APTT 42 SECONDS (21-34) H 09/29/17 22:46
[2017-10-04] MEDS ORDERED: Pantoprazole 40 mg EC Tab PO SCH (10:00)
[2017-10-04] MEDS: Venlafaxine 75 mg ER Cap PO SCH (10:02)
[2017-10-04 10:05] VITALS: BP 153/84
--- NOTE | 2017-10-07 21:09 | CP.PCM.DIS ---
Provider - Provider Date of Admission: 09/29/17 23:13 Attending physician: Roz Lunsford MD Primary care physician: Non [facility] Provider Time Spent in preparation of Discharge (in minutes): 45 Hospital Course - Lab Results Lab Results: Micro Results 10/01/17 14:50 Blood-Venous Blood Culture - Final NO GROWTH AFTER 5 DAYS 10/01/17 14:50 Blood-Venous Gram Stain - Final TEST NOT PERFORMED 10/01/17 13:48 Blood-Venous Blood Culture - Final NO GROWTH AFTER 5 DAYS 10/01/17 13:48 Blood-Venous Gram Stain - Final TEST NOT PERFORMED 10/02/17 13:08 Urine,Catheterized Urine Culture - Final No Growth (<1,000 CFU/ML) 09/29/17 21:45 Blood Blood Culture - Final Enterococcus Faecalis 09/29/17 21:45 Blood Gram Stain - Final 09/29/17 22:00 Blood S.aureus & Coag-Neg Staph PNA FISH - Final 09/29/17 22:00 Blood Blood Culture - Final Enterococcus Faecalis 09/29/17 22:00 Blood Gram Stain - Final Most Recent Lab Values WBC 4.9 K/uL (4.8-10.8) 10/02/17 07:15 RBC 3.35 Mil/uL (3.80-5.20) L 10/02/17 07:15 Hgb 10.7 g/dL (11.0-16.0) L 10/02/17 07:15 Hct 31.2 % (34.0-47.0) L 10/02/17 07:15 MCV 93.3 fL (81.0-99.0) 10/02/17 07:15 MCH 32.1 pg (27.0-31.0) H 10/02/17 07:15 MCHC 34.4 g/dL (33.0-37.0) 10/02/17 07:15 RDW 13.8 % (11.5-14.5) 10/02/17 07:15 Plt Count 186 K/uL (130-400) 10/02/17 07:15 MPV 7.7 fL (7.2-11.7) 10/02/17 07:15 Neut % (Auto) 67.4 % (50.0-75.0) 10/02/17 07:15 Lymph % (Auto) 18.2 % (20.0-40.0) L 10/02/17 07:15 [place] % (Auto) 10.8 % (0.0-10.0) H 10/02/17 07:15 Eos % (Auto) 2.9 % (0.0-4.0) 10/02/17 07:15 Baso % (Auto) 0.7 % (0.0-2.0) 10/02/17 07:15 Neut # (Auto) 3.3 K/uL (1.8-7.0) 10/02/17 07:15 Lymph # (Auto) 0.9 K/uL (1.0-4.3) L 10/02/17 07:15 Prentiss # (Auto) 0.5 K/uL (0.0-0.8) 10/02/17 07:15 Eos # (Auto) 0.1 K/uL (0.0-0.7) 10/02/17 07:15 Baso # (Auto) 0.0 K/uL (0.0-0.2) 10/02/17 07:15 Neutrophils % (Manual) 85 % (50-75) H 09/29/17 21:49 Band Neutrophils % 1 % (0-2) 09/29/17 21:49 Lymphocytes % (Manual) 10 % (20-40) L 09/29/17 21:49 Monocytes % (Manual) 4 % (0-10) 09/29/17 21:49 Platelet Estimate Normal (NORMAL) 09/29/17 21:49 Large Platelets Present 09/29/17 21:49 Hypochromasia (manual) Slight 09/29/17 21:49 Anisocytosis (manual) Slight 09/29/17 21:49 ESR 121 mm/hr (0-20) H 10/02/17 07:15 PT 15.9 SECONDS (9.7-12.2) H 09/29/17 22:46 INR 1.5 09/29/17 22:46 APTT 42 SECONDS (21-34) H 09/29/17 22:46 pO2 22 mm/Hg (30-55) L 09/29/17 21:58 VBG pH 7.42 (7.32-7.43) 09/29/17 21:58 VBG pCO2 58 mmHg (40-60) 09/29/17 21:58 VBG HCO3 31.8 mmol/L 09/29/17 21:58 VBG Total CO2 39.4 mmol/L (22-28) H 09/29/17 21:58 VBG O2 Sat (Calc) 34.0 % (40-65) L 09/29/17 21:58 VBG Base Excess 10.8 mmol/L (0.0-2.0) H 09/29/17 21:58 VBG Potassium 4.1 mmol/L (3.6-5.2) 09/29/17 21:58 Sodium 136.0 mmol/l (132-148) 09/29/17 21:58 Chloride 96.0 mmol/L (98-107) L 09/29/17 21:58 Glucose 199 mg/dl (65-105) H 09/29/17 21:58 Lactate 3.8 mmol/L (0.7-2.1) H 09/29/17 21:58 Sodium 142 mmol/L (132-148) 10/02/17 07:15 Potassium 3.9 mmol/L (3.6-5.2) 10/02/17 07:15 Chloride 106 mmol/L (98-107) 10/02/17 07:15 Carbon Dioxide 27 mmol/L (22-30) 10/02/17 07:15 Anion Gap 13 (10-20) 10/02/17 07:15 BUN 18 mg/dL (7-17) H 10/02/17 07:15 Creatinine 1.5 mg/dL (0.7-1.2) H 10/02/17 07:15 Est GFR ( Amer) 41 10/02/17 07:15 Est GFR (Non-Af Amer) 33 10/02/17 07:15 POC Glucose (mg/dL) 223 mg/dL (65-110) H 09/29/17 21:30 Random Glucose 141 mg/dL (65-105) H 10/02/17 07:15 Calcium 8.1 mg/dl (8.6-10.4) L 10/02/17 07:15 Magnesium 2.1 mg/dL (1.6-2.3) 09/29/17 21:49 Total Bilirubin 0.4 mg/dL (0.2-1.3) 10/02/17 07:15 AST 29 U/L (14-36) 10/02/17 07:15 ALT 20 U/L (9-52) 10/02/17 07:15 Alkaline Phosphatase 68 U/L (38-126) 10/02/17 07:15 C-Reactive Protein 71.20 mg/L (0.0-9.9) H 10/02/17 07:15 Total Protein 7.0 g/dL (6.3-8.3) 10/02/17 07:15 Albumin 3.4 g/dL (3.5-5.0) L 10/02/17 07:15 Globulin 3.5 gm/dL (2.2-3.9) 10/02/17 07:15 Albumin/Globulin Ratio 1.0 (1.0-2.1) 10/02/17 07:15 Venous Blood Potassium 4.1 mmol/L (3.6-5.2) 09/29/17 21:58 Urine Color Yellow (YELLOW) 10/02/17 13:08 Urine Clarity Hazy (Clear) 10/02/17 13:08 Urine pH 6.0 (5.0-8.0) 10/02/17 13:08 Ur Specific [place] 1.007 (1.003-1.030) 10/02/17 13:08 Urine Protein Negative mg/dL (NEGATIVE) 10/02/17 13:08 Urine Glucose (UA) 3+ mg/dL (Normal) H 10/02/17 13:08 Urine Ketones Negative mg/dL (NEGATIVE) 10/02/17 13:08 Urine Blood 2+ (NEGATIVE) H 10/02/17 13:08 Urine Nitrate Negative (NEGATIVE) 10/02/17 13:08 Urine Bilirubin Negative (NEGATIVE) 10/02/17 13:08 Urine Urobilinogen Normal mg/dL (0.2-1.0) 10/02/17 13:08 Ur Leukocyte Esterase 3+ [place]/uL (Negative) H 10/02/17 13:08 Urine WBC (Auto) 92 /hpf (0-5) H 10/02/17 13:08 Urine RBC (Auto) 43 /hpf (0-3) H 10/02/17 13:08 Ur Squamous Epith Cells < 1 /hpf (0-5) 10/02/17 13:08 Urine Bacteria Few (<OCC) H 09/29/17 22:46 Complement C4 41.1 mg/dL (14.0-44.0) 10/03/17 07:02 Tot Complement (CH50) >60 U/mL (31-60) H 10/03/17 07:02 - Hospital Course Hospital Course: Chief complain: Altered mental status HPI: 77-year-old female with a history of hypertension diabetes Crory artery disease high cholesterol atrial fibrillation pacemaker, V. tach and is status post AICD , anxiety, depression. Arthritis, weakness and dementia. Patient was in her usual state of health. Yesterday she was started having some slowing in her activities, evening time she was not responding. She was not eating well. According to the patient's daughter while she came to check her up in the house she was on the bed, but unable to get up. She was trying to get out of the chair, see slide and fell on the floor. But the patient's family was next to her, able to grab her and place her on the bed. Called ambulance, brought into the emergency room. Patient was continued to have altered mental status in the emergency room. Evaluation was done. CAT scan were negative Suspected urinary tract infection, needed hospitalization. Today morning patient was feeling well. She was more awake and responding. She has no chest pain. Denies any nausea vomiting no fever noted Past medical history: Hypertension, diabetes, high cholesterol, CAD, atrial fibrillation, V. tach, status post ACD, depression and anxiety Allergies no known drug allergy Personal history: Lifelong nonsmoker nonalcoholic Patient lives in the family members. Surgical history: Bilateral knee replacement. Pacemaker ACD Family history noncontributory Review of systems noted from the chart. Mild headache. Dementia noted, no chest pain, shortness of breath noted occasionally. Complaining of generalized body pain. Patient had altered mental status yesterday, currently feeling well. Examination: Vital signs stable. Chest good air entry Regular heart sound nontender abdomen no pedal edema GALLEY HAND alert awake oriented Patient is now alert awake, oriented to place and person and time Labs reviewed Urine analysis showing evidence of elevated WBC, positive bacteria CAT scan of the head is negative, chest x-ray nonspecific Assessment and recommendation: 77-year-old female with a history of hypertension diabetes high cholesterol CAD status post ACD. Atrial fibrillation. Admitted now with a possible urinary tract infection, contributing the altered mental status. Improving at this time, on ciprofloxacin empirical antibiotic. Will get the urine culture. Urine analysis. Patient will need physical therapy. Awaiting further culture and will follow the patient I spoke to the patient's family in detail Course in the hospital: Patient initially started on ciprofloxacin. Blood culture later showed evidence of Enterococcus faecalis. Infectious disease evaluation called. Patient was given Zosyn and vancomycin. Patient tolerated the antibiotic well. She got improved markedly. Had altered mental status improved also. Clinically patient was stable. Echocardiogram was done, showing no evidence of any endocarditis. But cannot be ruled out completely. 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 Clinically stable. I also spoke to the infectious disease evaluation. Enterococcus sensitive organism. Patient will continue Augmentin as an outpatient for 7 days. But patient does not want further testing. Patient adamant to go home. She was discharged home I spoke to the patient's family in detail. She will follow-up as an outpatient. Probiotic also advised. We will follow the patient Diagnosis: Altered mental status secondary to metabolic encephalopathy and severe sepsis and bacteremia. Chronic renal insufficiency with hypertension. Dementia. Congestive heart failure, diastolic likely. AICD. Anxiety and depression. Discharge Exam - Head Exam Head Exam: NORMAL INSPECTION Discharge Plan - Discharge Medications Prescriptions: Amoxicillin/Clavulanate [Augmentin 875 MG-125 MG] 1 tab PO BID #20 tab - Follow Up Plan Condition: FAIR Disposition: HOME/ ROUTINE Instructions: Sepsis, Adult (DC), Urinary Tract Infection in Women (DC) Additional Instructions: d/c home today and f/u in one week Home with physical therapy Referrals: Roz Lunsford MD [Staff Provider] - Non [facility] Provider, [Primary Care Provider] -
--- NOTE | 2017-10-08 13:48 | CARD ---
APPROVED REPORT EKG Measurement Heart [id number] <Conclusion> Atrial-sensed ventricular-paced rhythm Abnormal ECG
== END 2017-10-04 13:33 | disposition home or self-care (01) | DRG 871 ==
LOC: C.ER 21:16 → SUPCPDRO 21:16 → C.9E 23:13 → C.3T 09-30 02:11
PROVIDERS: ADMIT Internal Medicine; ATTEND Internal Medicine
DX: A41.81 Sepsis due to Enterococcus (principal); R65.21 Severe sepsis with septic shock; I42.9 Cardiomyopathy, unspecified; N39.0 Urinary tract infection, site not specified; Z68.41 Body mass index [BMI] 40.0-44.9, adult; I47.2 Ventricular tachycardia; E11.9 Type 2 diabetes mellitus without complications; I11.0 Hypertensive heart disease with heart failure; I25.10 Atherosclerotic heart disease of native coronary artery without angina pectoris; I48.91 Unspecified atrial fibrillation; I50.9 Heart failure, unspecified; F41.8 Other specified anxiety disorders; Z95.1 Presence of aortocoronary bypass graft; Z95.5 Presence of coronary angioplasty implant and graft; Z96.653 Presence of artificial knee joint, bilateral; E66.9 Obesity, unspecified; N28.9 Disorder of kidney and ureter, unspecified; K59.00 Constipation, unspecified

== ENCOUNTER 2018-02-06 11:03 | Inpatient (IN) | payer MEDICARE, MEDICAID ==
[2018-02-06 11:43] LABS: BASO # 0.1 K/uL (0.0-0.2); BASO % 0.7 % (0.0-2.0); EOS # 0.2 K/uL (0.0-0.7); EOS % 1.9 % (0.0-4.0); HEMOGLOBIN 12.6 g/dL (11.0-16.0); LYMPH # 1.4 K/uL (1.0-4.3); LYMPH % 17.2 % (20.0-40.0); MEAN CELL VOLUME 92.5 fL (81.0-99.0); MEAN CORPUSCULAR HEMOGLOBIN 30.9 pg (27.0-31.0); MEAN CORPUSCULAR HGB CONC 33.4 g/dL (33.0-37.0); MEAN PLATELET VOLUME 7.8 fL (7.2-11.7); MONO # 0.6 K/uL (0.0-0.8); MONO % 7.5 % (0.0-10.0); NEUT % 72.7 % (50.0-75.0); NRBC % 0.1 % (0.0-2.0); RBC 4.07 Mil/uL (3.80-5.20); RED CELL DISTRIBUTION WIDTH 15.3 % (11.5-14.5)
[2018-02-06 11:51] LABS: VENOUS BLOOD GAS BASE EXCESS 7.3 mmol/L (0.0-2.0); VENOUS BLOOD GAS PCO2 53 mmHg (40-60); VENOUS BLOOD GAS PO2 50 mm/Hg (30-55); VENOUS BLOOD PH 7.41 (7.32-7.43)
[2018-02-06 11:51] LABS: WHITE BLOOD COUNT 8.3 K/uL (4.8-10.8)
[2018-02-06 11:53] LABS: INR 1.4; PROTHROMBIN TIME 14.8 SECONDS (9.7-12.2)
[2018-02-06] MEDS ORDERED: cefTRIAXone IV 1 gm in Dextros 50 ML IVPB STA (12:10)
[2018-02-06] MEDS ORDERED: Piperacill/Tazo 3.375gm in Dex 3.375 GM/50 ML BAG IVPB STA (12:10)
[2018-02-06 12:15] LABS: TROPONIN I 0.026 ng/mL (0.00-0.120)
[2018-02-06 12:20] LABS: SQUAMOUS EPITHIAL < 1 /hpf (0-5); URINE BACTERIA MANY (<OCC); URINE BILIRUBIN NEGATIVE (NEGATIVE); URINE BLOOD 3+ (NEGATIVE); URINE CLARITY Hazy (Clear); URINE COLOR Amber (YELLOW); URINE GLUCOSE (UA) NORMAL (Normal); URINE LEUKOCYTE ESTERASE 3+ Leu/uL (Negative); URINE PROTEIN 2+ mg/dL (NEGATIVE); URINE UROBILINOGEN NORMAL mg/dL (0.2-1.0); WBC CLUMPS FEW /hpf
[2018-02-06] MEDS ORDERED: cefTRIAXone 1 gm 1 GM/100 ML BAG IVPB ONE (12:21)
[2018-02-06] MEDS ORDERED: Lactated Ringer's 2,000 ML ONE (12:21)
[2018-02-06] MEDS ORDERED: Piperacillin/Tazobact 3.375 gm 100 ML IVPB ONE (12:21)
[2018-02-06 12:22] LABS: ALB/GLOB RATIO 1.1 (1.0-2.1); CALCIUM 14.6 mg/dl (8.6-10.4)
--- NOTE | 2018-02-06 12:42 | C.PDOC ---
History Of Present Illness 77 y/o female, w/PMhx of HTN, diabetes, hypercholesterolemia, Atrial Fibrillation, CHF, CAD, and depression, BIBA with daughter- in law, for evaluation of confusion which has been present for the past 3 days. [id number] states that she respond slowly to questions and appears dazed, slightly below her baseline. She is bedbound and she walks with assistance.Daughter- in-law reports that she lives alone at home and she has a home health aide who takes care of her for 2-4 hours per day.Denies having CP, SOB, fever, and chills. PMD: Time Seen by Provider: 02/06/18 11:15 Chief Complaint (Nursing): Dizziness/Lightheaded History Per: Patient, Family History/Exam Limitations: None Onset/Duration Of Symptoms: Days Current Symptoms Are (Timing): Still Present Severity: Moderate Past Medical History Reviewed: Historical Data, Nursing Documentation, Vital Signs Vital Signs: Last Vital Signs Temp 98.6 F 02/06/18 11:18 Pulse 76 02/06/18 12:00 Resp 22 02/06/18 12:00 BP 107/50 L 02/06/18 12:00 Pulse Ox 92 L 02/06/18 12:00 - Medical History PMH: Anxiety, Arthritis, Atrial Fibrillation, CAD, CHF, Depression, Diabetes, Fractures, HTN, Hypercholesterolemia, Peripheral Edema Denies: Alzheimer's Disease, Anemia, Asthma, Bipolar Disorder, Bronchitis, Cardia Arrhythmia, COPD, Crohn's Disease, Dementia, Diverticulitis, Emphysema, Gastritis, Gall Bladder Disease, HIV, Hyperthyroidism, Hypothyroidism, Kidney Stones, Migraine, Mitral Valve Prolapse, Multiple Sclerosis, Osteoporosis, Pancreatitis, Parkinson's Disease, Personality Disorder, Pneumonia, Pulmonary Embolism, Chronic Kidney Disease, Rheumatoid Arthritis, Schizophrenia, Seizures, Sickle Cell Disease, Sexually Transmitted Disease, Sleep Apnea, TIA Surgical History: Appendectomy (SURG AT AGE 13), Pacemaker Denies: CABG, Carotid Endarterectomy, Cholecystectomy, Coronary Stent, Tonsillectomy - [facility] INDIVID PSYCHOTHERAP NEC (08/12/14) INFLUENZA VACCINATION (02/16/14) NON-INVASIVE MECHANICAL VENTILATION (08/07/14) OTHER GROUP THERAPY (08/12/14) VACCINATION NEC (02/16/14) Family History: States: No Known Family Hx - Social History Hx Tobacco Use: No Hx Alcohol Use: No Hx Substance Use: No - Immunization History Hx Tetanus Toxoid Vaccination: No Hx Influenza Vaccination: No Hx Pneumococcal Vaccination: No Review Of Systems Except As Marked, All Systems Reviewed And Found Negative. Constitutional: Negative for: Fever, Chills Cardiovascular: Negative for: Chest Pain Respiratory: Negative for: Shortness of Breath Neurological: Positive for: Confusion Physical Exam - Physical Exam Appears: Other (ill appearing, tearful) Skin: Warm, Dry, Other (pale) Head: Atraumatic, Normacephalic Eye(s): bilateral: Normal Inspection Nose: Normal Oral Mucosa: Moist Neck: Supple Chest: Symmetrical Cardiovascular: Rhythm Regular Respiratory: Normal Breath Sounds, No Rales, No Rhonchi, No Wheezing Gastrointestinal/Abdominal: Soft, Tenderness (mild generalized tenderness), No Guarding, No Rebound, Other (obese) Extremity: Normal ROM, Other (pitting edema to bilateral lower extremities) Neurological/Psych: Oriented x3, Normal Speech ED Course And Treatment - Laboratory Results Result Diagrams: 02/06/18 11:39 02/06/18 11:39 ECG: Interpreted By Me, Viewed By Me ECG Rhythm: Atrial Fibrillation (pacemaker) Interpretation Of ECG: Atrial Fibrillation with occasional PVC's Rate From EC O2 Sat by Pulse Oximetry: 92 (RA) Pulse Ox Interpretation: Abnormal - Other Rad CXR X-Ray: Viewed By Me, Read By Radiologist Interpretation: Date of service: 02/06/2018. HISTORY: Sepsis Patient. COMPARISON: 09/29/2017. FINDINGS: LUNGS: No active pulmonary disease. PLEURA: No significant pleural effusion identified, no pneumothorax apparent. CARDIOVASCULAR: No radiographic findings to suggest acute or significant cardiovascular disease. OSSEOUS STRUCTURES: No significant abnormalities. VISUALIZED UPPER ABDOMEN: Normal. OTHER FINDINGS: Persistent low lung volumes. IMPRESSION: No active disease. No significant interval change compared to the prior examination(s). Medical Decision Making Medical Decision Making: Plan: --Labs --UA --ECG --CXR --Zosyn IV --Rocephin IV Updates: On re-evaluation, patient has bp 130/60 and O2 Sat 97 with nasal cannula. Case discussed with Dr. Lunsford. Patient will be admitted under the service of for Sepsis. Disposition Discussed With : Roz Lunsford Counseled Patient/Family Regarding: Studies Performed, Diagnosis - Disposition Disposition: HOSPITALIZED Disposition Time: 12:38 Condition: GUARDED Forms: [facility] (Croatian) - Clinical Impression Clinical Impression: Sepsis - Scribe Statement The provider has reviewed the documentation as recorded by the Lilibethibe Laurel Negron Provider Attestation: All medical record entries made by the Scribe were at my direction and personally dictated by me. I have reviewed the chart and agree that the record accurately reflects my personal performance of the history, physical exam, medical decision making, and the department course for this patient. I have also personally directed, reviewed, and agree with the discharge instructions and disposition. Decision To Admit - Pt Status Changed To: Hospital Disposition Of: Inpatient - Admit Certification Admit to Inpatient:: After my assessment, the patient will require hospitalization for at least two midnights. This is because of the severity of symptoms shown, intensity of services needed, and/or the medical risk in this patient being treated as an outpatient. - . Bed Request Type: Telemetry Admitting Physician: Roz Lunsford Patient Diagnosis: Sepsis Addendum Addendum: 02/06/18 12:[address] Hodges, agrees with admission. Will consider ICU. Spoke with Tong, recommends continue eval in the ED. Will re eval after fluids and a repeat lactate. 02/06/18 14:10 Patient seen and downgraded by ICU
[2018-02-06] MEDS ORDERED: Lactated Ringer's 1,000 ML ONE (12:57)
--- NOTE | 2018-02-06 14:18 | CP.PCM.CON ---
<Armando Denney - Last Filed: 02/06/18 14:24> History of Present Illness - History of Present Illness History of Present Illness: 77 y female, PMHx of HTN, HLD, DM2, Atrial Fib, CHF, CAD presents to ED confused for 3 days with associated cloudiness of thought. Pt reports she has not been eating much and rarely drinks water at home. she lives alone at home and she has a home health aide who takes care of her for 2-4 hours per day.Denies having CP, SOB, fever, and chills. Pt also denies any slurred speach, facial droop, denies any recent head trauma. Review of Systems - Review of Systems All systems: reviewed and no additional remarkable complaints except (per HPI) Past Patient History - Infectious Disease Hx of Infectious Diseases: None - Tetanus Immunizations Tetanus Immunization: Unknown - Past Medical History & Family History Past Medical History?: Yes - Past Social History Smoking Status: Never Smoked - CARDIAC Hx Atrial Fibrillation: Yes Hx Cardia Arrhythmia: No Hx Congestive Heart Failure: Yes Hx Hypercholesterolemia: Yes Hx Hypertension: Yes Hx Mitral Valve Prolapse: No Hx Pacemaker: Yes Hx Peripheral Edema: Yes - PULMONARY Hx Asthma: No Hx Bronchitis: No Hx Chronic Obstructive Pulmonary Disease (COPD): No Hx Emphysema: No Hx Pneumonia: No Hx Pulmonary Embolism: No Hx Sleep Apnea: No - NEUROLOGICAL Hx Alzheimer's Disease: No Hx Dementia: No Hx Migraine: No Hx Multiple Sclerosis: No Hx Parkinson's Disease: No Hx Seizures: No Hx Transient Ischemic Attacks (TIA): No - HEENT Hx HEENT Problems: No - RENAL Hx Chronic Kidney Disease: No Hx Kidney Stones: No - ENDOCRINE/METABOLIC Hx Hyperthyroidism: No Hx Hypothyroidism: No - HEMATOLOGICAL/ONCOLOGICAL Hx Anemia: No Hx Human Immunodeficiency Virus (HIV): No Hx Sickle Cell Disease: No - INTEGUMENTARY Hx Dermatological Problems: No - MUSCULOSKELETAL/RHEUMATOLOGICAL Hx Arthritis: Yes Hx Fractures: Yes Hx Osteoporosis: No Hx Rheumatoid Arthritis: No - GASTROINTESTINAL Hx Crohn's Disease: No Hx Diverticulitis: No Hx Gall Bladder Disease: No Hx Gastritis: No Hx Pancreatitis: No - GENITOURINARY/GYNECOLOGICAL Hx Sexually Transmitted Disorders: No - PSYCHIATRIC Hx Anxiety: Yes Hx Bipolar Disorder: No Hx Depression: Yes Hx Schizophrenia: No Hx Substance Use: No - SURGICAL HISTORY Hx Appendectomy: Yes (SURG AT AGE 13) Hx Carotid Endarterectomy: No Hx Cholecystectomy: No Hx Coronary Artery Bypass Graft: No Hx Coronary Stent: No Hx Tonsillectomy: No - ANESTHESIA Hx Anesthesia: Yes Hx Anesthesia Reactions: No Hx Malignant Hyperthermia: No Meds Allergies/Adverse Reactions: Allergies Allergy/AdvReac Type Severity Reaction Status Date / Time No Known Allergies Allergy Verified 02/06/18 11:11 Physical Exam - Additional Findings Additional findings: Appears: Other (ill appearing, tearful) Skin: Warm, Dry, Other (pale) Head: Atraumatic, Normacephalic Eye(s): bilateral: Normal Inspection Nose: Normal Oral Mucosa: Moist Neck: Supple Chest: Symmetrical Cardiovascular: Rhythm Regular Respiratory: Normal Breath Sounds, No Rales, No Rhonchi, No Wheezing Gastrointestinal/Abdominal: Soft, Tenderness (mild generalized tenderness), No Guarding, No Rebound, Other (obese) Extremity: +1 pitting edema daniel Neurological/Psych: Oriented x3, Normal Speech Results - Vital Signs Recent Vital Signs: Last Vital Signs Temp 98.3 F 02/06/18 13:35 Pulse 72 02/06/18 13:35 Resp 14 02/06/18 13:35 BP 120/68 02/06/18 13:35 Pulse Ox 92 L 02/06/18 14:11 - Labs Result Diagrams: 02/06/18 11:39 02/06/18 11:39 Labs: Laboratory Results - last 24 hr 02/06/18 02/06/18 02/06/18 11:04 11:39 11:39 WBC 8.3 D RBC 4.07 Hgb 12.6 Hct 37.7 MCV 92.5 MCH 30.9 MCHC 33.4 RDW 15.3 H Plt Count 240 MPV 7.8 Neut % (Auto) 72.7 Lymph % (Auto) 17.2 L [place] % (Auto) 7.5 Eos % (Auto) 1.9 Baso % (Auto) 0.7 Neut # (Auto) 6.0 Lymph # (Auto) 1.4 [place] # (Auto) 0.6 Eos # (Auto) 0.2 Baso # (Auto) 0.1 PT 14.8 H INR 1.4 APTT 34 pO2 VBG pH VBG pCO2 VBG HCO3 VBG Total CO2 VBG O2 Sat (Calc) VBG Base Excess VBG Potassium Glucose Lactate Crit Value Called To Crit Value Called By Crit Value Read Back Blood Gas Notified Time Sodium Potassium Chloride Carbon Dioxide Anion Gap BUN Creatinine Est GFR ( Amer) Est GFR (Non-Af Amer) POC Glucose (mg/dL) 246 H Random Glucose Calcium Phosphorus Magnesium Total Bilirubin AST ALT Alkaline Phosphatase Troponin I NT-Pro-B Natriuret Pep Total Protein Albumin Globulin Albumin/Globulin Ratio Venous Blood Potassium Urine Color Urine Clarity Urine pH Ur Specific Goff Urine Protein Urine Glucose (UA) Urine Ketones Urine Blood Urine Nitrate Urine Bilirubin Urine Urobilinogen Ur Leukocyte Esterase Urine WBC (Auto) Urine RBC (Auto) Urine WBC Clumps (Auto) Ur Squamous Epith Cells Urine Bacteria Hyaline Casts 02/06/18 02/06/18 02/06/18 11:39 11:41 12:04 WBC RBC Hgb Hct MCV MCH MCHC RDW Plt Count MPV Neut % (Auto) Lymph % (Auto) [place] % (Auto) Eos % (Auto) Baso % (Auto) Neut # (Auto) Lymph # (Auto) [place] # (Auto) Eos # (Auto) Baso # (Auto) PT INR APTT pO2 50 VBG pH 7.41 VBG pCO2 53 VBG HCO3 30.3 VBG Total CO2 35.2 H VBG O2 Sat (Calc) 88.7 H VBG Base Excess 7.3 H VBG Potassium 3.5 L Glucose 230 H Lactate 4.5 H* Crit Value Called To Crit Value Called By Sergei brooke boom stick worker Crit Value Read Back Y Blood Gas Notified Time 1150 Sodium 138 139.0 Potassium 3.7 Chloride 92 L 100.0 Carbon Dioxide 32 H Anion Gap 18 BUN 28 H Creatinine 2.6 H Est GFR ( Amer) 21 Est GFR (Non-Af Amer) 18 POC Glucose (mg/dL) Random Glucose 235 H Calcium 14.6 H* D Phosphorus 3.9 Magnesium 2.1 Total Bilirubin 0.5 AST 33 ALT 32 Alkaline Phosphatase 108 Troponin I 0.0260 NT-Pro-B Natriuret Pep 1400 H Total Protein 7.8 Albumin 4.0 Globulin 3.8 Albumin/Globulin Ratio 1.1 Venous Blood Potassium 3.5 L Urine Color Urvashi Urine Clarity Hazy Urine pH 6.0 Ur Specific Goff 1.011 Urine Protein 2+ H Urine Glucose (UA) Normal Urine Ketones Negative Urine Blood 3+ H Urine Nitrate Negative Urine Bilirubin Negative Urine Urobilinogen Normal Ur Leukocyte Esterase 3+ H Urine WBC (Auto) 303 H Urine RBC (Auto) 17 H Urine WBC Clumps (Auto) Few H Ur Squamous Epith Cells < 1 Urine Bacteria Many H Hyaline Casts 6-10 H Assessment & Plan - Assessment and Plan (Free Text) Assessment: 77yo F with Hypotension likely dehydrated, responding to fluids Plan: Neuro: -AAOx3 -monitor mental status Pulm: -Maintain spO2 >90% -Nasal cannula PRN CardioVasc: -Hypotension on presentation -recieved lac ringers 3.4L -improving clinically -currently hemodynamically stable Heme: -Monitor H/H -monitor Lactate likely 2/2 to dehydration Renal: -monitor I&O -monitor and repleat electrolytes Endo: -Maintain euglycemia 140-180 blood sugar GI: -resume feeds ID: -Afebrile -no leukocytosis DVT PPX: -not indicated Seen with Dr Pena, agrees with plan C Олег PGY1 <Russell Pena - Last Filed: 02/06/18 18:22> Meds - Medications Medications: Current Medications Apixaban (Eliquis) 2.5 mg PO BID ALEX Piperacillin Sod/Tazobactam (Sod 3.375 gm/ Sodium Chloride) 100 mls @ 200 mls/hr IVPB Q8H ALEX; Protocol Sodium Chloride (Sodium Chloride 0.9%) 1,000 mls @ 75 mls/hr IV .[id number] ALEX Lorazepam (Ativan) 1 mg PO BID PRN PRN Reason: Agitation Mirtazapine (Remeron) 45 mg PO HS ALEX Venlafaxine HCl (Effexor Xr) 75 mg PO QAM ALEX Venlafaxine HCl (Effexor Xr) 150 mg PO QPM ALEX Results - Vital Signs Recent Vital Signs: Last Vital Signs Temp 98.4 F 02/06/18 16:00 Pulse 65 02/06/18 16:00 Resp 20 02/06/18 16:00 BP 141/77 02/06/18 16:00 Pulse Ox 98 02/06/18 16:00 - Labs Result Diagrams: 02/06/18 11:39 02/06/18 11:39 Labs: Laboratory Results - last 24 hr 02/06/18 02/06/18 02/06/18 11:04 11:39 11:39 WBC 8.3 D RBC 4.07 Hgb 12.6 Hct 37.7 MCV 92.5 MCH 30.9 MCHC 33.4 RDW 15.3 H Plt Count 240 MPV 7.8 Neut % (Auto) 72.7 Lymph % (Auto) 17.2 L [place] % (Auto) 7.5 Eos % (Auto) 1.9 Baso % (Auto) 0.7 Neut # (Auto) 6.0 Lymph # (Auto) 1.4 [place] # (Auto) 0.6 Eos # (Auto) 0.2 Baso # (Auto) 0.1 PT 14.8 H INR 1.4 APTT 34 pO2 VBG pH VBG pCO2 VBG HCO3 VBG Total CO2 VBG O2 Sat (Calc) VBG Base Excess VBG Potassium Glucose Lactate Crit Value Called To Crit Value Called By Crit Value Read Back Blood Gas Notified Time Sodium Potassium Chloride Carbon Dioxide Anion Gap BUN Creatinine Est GFR ( Amer) Est GFR (Non-Af Amer) POC Glucose (mg/dL) 246 H Random Glucose Calcium Phosphorus Magnesium Total Bilirubin AST ALT Alkaline Phosphatase Troponin I NT-Pro-B Natriuret Pep Total Protein Albumin Globulin Albumin/Globulin Ratio Venous Blood Potassium Urine Color Urine Clarity Urine pH Ur Specific Goff Urine Protein Urine Glucose (UA) Urine Ketones Urine Blood Urine Nitrate Urine Bilirubin Urine Urobilinogen Ur Leukocyte Esterase Urine WBC (Auto) Urine RBC (Auto) Urine WBC Clumps (Auto) Ur Squamous Epith Cells Urine Bacteria Hyaline Casts 02/06/18 02/06/18 02/06/18 11:39 11:41 12:04 WBC RBC Hgb Hct MCV MCH MCHC RDW Plt Count MPV Neut % (Auto) Lymph % (Auto) [place] % (Auto) Eos % (Auto) Baso % (Auto) Neut # (Auto) Lymph # (Auto) [place] # (Auto) Eos # (Auto) Baso # (Auto) PT INR APTT pO2 50 VBG pH 7.41 VBG pCO2 53 VBG HCO3 30.3 VBG Total CO2 35.2 H VBG O2 Sat (Calc) 88.7 H VBG Base Excess 7.3 H VBG Potassium 3.5 L Glucose 230 H Lactate 4.5 H* Crit Value Called To Crit Value Called By Sergei brooke boom stick worker Crit Value Read Back Y Blood Gas Notified Time 1150 Sodium 138 139.0 Potassium 3.7 Chloride 92 L 100.0 Carbon Dioxide 32 H Anion Gap 18 BUN 28 H Creatinine 2.6 H Est GFR ( Amer) 21 Est GFR (Non-Af Amer) 18 POC Glucose (mg/dL) Random Glucose 235 H Calcium 14.6 H* D Phosphorus 3.9 Magnesium 2.1 Total Bilirubin 0.5 AST 33 ALT 32 Alkaline Phosphatase 108 Troponin I 0.0260 NT-Pro-B Natriuret Pep 1400 H Total Protein 7.8 Albumin 4.0 Globulin 3.8 Albumin/Globulin Ratio 1.1 Venous Blood Potassium 3.5 L Urine Color Urvashi Urine Clarity Hazy Urine pH 6.0 Ur Specific Goff 1.011 Urine Protein 2+ H Urine Glucose (UA) Normal Urine Ketones Negative Urine Blood 3+ H Urine Nitrate Negative Urine Bilirubin Negative Urine Urobilinogen Normal Ur Leukocyte Esterase 3+ H Urine WBC (Auto) 303 H Urine RBC (Auto) 17 H Urine WBC Clumps (Auto) Few H Ur Squamous Epith Cells < 1 Urine Bacteria Many H Hyaline Casts 6-10 H 02/06/18 14:39 WBC RBC Hgb Hct MCV MCH MCHC RDW Plt Count MPV Neut % (Auto) Lymph % (Auto) [place] % (Auto) Eos % (Auto) Baso % (Auto) Neut # (Auto) Lymph # (Auto) [place] # (Auto) Eos # (Auto) Baso # (Auto) PT INR APTT pO2 15 L VBG pH 7.31 L VBG pCO2 78 H* VBG HCO3 30.4 VBG Total CO2 41.7 H VBG O2 Sat (Calc) 21.2 L VBG Base Excess 9.8 H VBG Potassium 3.4 L Glucose 185 H Lactate 3.1 H Crit Value Called To Crit Value Called By Chapincito beauchamp,boom stick worker Crit Value Read Back Y Blood Gas Notified Time 1445 Sodium 139.0 Potassium Chloride 99.0 Carbon Dioxide Anion Gap BUN Creatinine Est GFR ( Amer) Est GFR (Non-Af Amer) POC Glucose (mg/dL) Random Glucose Calcium Phosphorus Magnesium Total Bilirubin AST ALT Alkaline Phosphatase Troponin I NT-Pro-B Natriuret Pep Total Protein Albumin Globulin Albumin/Globulin Ratio Venous Blood Potassium 3.4 L Urine Color Urine Clarity Urine pH Ur Specific Goff Urine Protein Urine Glucose (UA) Urine Ketones Urine Blood Urine Nitrate Urine Bilirubin Urine Urobilinogen Ur Leukocyte Esterase Urine WBC (Auto) Urine RBC (Auto) Urine WBC Clumps (Auto) Ur Squamous Epith Cells Urine Bacteria Hyaline Casts Attending/Attestation - Attestation I have personally seen and examined this patient.: Yes I have fully participated in the care of the patient.: Yes I have reviewed all pertinent clinical information: Yes Notes (Text): 02/06/18 18:19 I have seen and examined the patient. Medical records, lab studies, and imaging were reviewed by me and a management plan was formulated on multidisciplinary rounds with resident Dr. Denney. I agree with their documented assessment and plan. Patient was most likely hypovolemic, with hypotension, elevated lactate, and elevated creatinine; which all improved after 2L of fluid. She stated she doesn't drink a lot of fluids regularly. Would also treat for undrlying UTI. She can be further treated on regular med/surg floors. No current need for ICU level of care, but please reconsult if the patient's clinical status changes. Critical Care Time 35 minutes. Multi-disciplinary rounds were performed with house staff, nursing, speech therapy, respiratory therapy, pharmacy and nutrition with integrated input from the primary team/attending and other consulting services. The documented time is cumulative and includes review of patient data/exams/labs/chart review and examination of the patient on rounds and throughout the day; time is exclusive of any procedures or teaching time.
[2018-02-06 14:44] LABS: VENOUS BLOOD GAS BASE EXCESS 9.8 mmol/L (0.0-2.0); VENOUS BLOOD GAS PCO2 78 mmHg (40-60); VENOUS BLOOD GAS PO2 15 mm/Hg (30-55); VENOUS BLOOD PH 7.31 (7.32-7.43)
[2018-02-06 17:05] VITALS: RESP 20
[2018-02-06] MEDS ORDERED: Venlafaxine 150 mg ER Cap PO SCH (18:00)
[2018-02-06] MEDS ORDERED: Sodium Chloride 0.9% 1,000 ML IV SCH (18:00)
[2018-02-06] MEDS ORDERED: Piperacillin/Tazobact 3.375 GM in Sodium Chloride 100 ML IVPB SCH (18:00)
[2018-02-06 18:32] LABS: BASO % 0.3 % (0.0-2.0); EOS # 0.2 K/uL (0.0-0.7); EOS % 2.1 % (0.0-4.0); HEMOGLOBIN 11.1 g/dL (11.0-16.0); LYMPH # 1.6 K/uL (1.0-4.3); LYMPH % 20.6 % (20.0-40.0); MEAN CORPUSCULAR HEMOGLOBIN 31.7 pg (27.0-31.0); MEAN CORPUSCULAR HGB CONC 34.5 g/dL (33.0-37.0); MEAN PLATELET VOLUME 7.5 fL (7.2-11.7); MONO # 0.6 K/uL (0.0-0.8); MONO % 7.3 % (0.0-10.0); NEUT # 5.3 K/uL (1.8-7.0); NEUT % 69.7 % (50.0-75.0); RBC 3.49 Mil/uL (3.80-5.20); RED CELL DISTRIBUTION WIDTH 14.9 % (11.5-14.5); WHITE BLOOD COUNT 7.6 K/uL (4.8-10.8)
[2018-02-06 18:59] LABS: ALBUMIN 3.2 g/dL (3.5-5.0)
[2018-02-06] MEDS: Sodium Chloride 0.9% 1,000 ML IV SCH (19:00)
--- NOTE | 2018-02-06 19:07 | CP.PCM.CON ---
History of Present Illness - History of Present Illness History of Present Illness: pt is seen and examined , full consult is dictated #[id number] Past Patient History - Infectious Disease Hx of Infectious Diseases: None - Tetanus Immunizations Tetanus Immunization: Unknown - Past Medical History & Family History Past Medical History?: Yes - Past Social History Smoking Status: Never Smoked - CARDIAC Hx Atrial Fibrillation: Yes Hx Cardia Arrhythmia: No Hx Congestive Heart Failure: Yes Hx Hypercholesterolemia: Yes Hx Hypertension: Yes Hx Mitral Valve Prolapse: No Hx Pacemaker: Yes Hx Peripheral Edema: Yes - PULMONARY Hx Asthma: No Hx Bronchitis: No Hx Chronic Obstructive Pulmonary Disease (COPD): No Hx Emphysema: No Hx Pneumonia: No Hx Pulmonary Embolism: No Hx Sleep Apnea: No - NEUROLOGICAL Hx Alzheimer's Disease: No Hx Dementia: No Hx Migraine: No Hx Multiple Sclerosis: No Hx Parkinson's Disease: No Hx Seizures: No Hx Transient Ischemic Attacks (TIA): No - HEENT Hx HEENT Problems: No - RENAL Hx Chronic Kidney Disease: No Hx Kidney Stones: No - ENDOCRINE/METABOLIC Hx Hyperthyroidism: No Hx Hypothyroidism: No - HEMATOLOGICAL/ONCOLOGICAL Hx Anemia: No Hx Human Immunodeficiency Virus (HIV): No Hx Sickle Cell Disease: No - INTEGUMENTARY Hx Dermatological Problems: No - MUSCULOSKELETAL/RHEUMATOLOGICAL Hx Arthritis: Yes Hx Fractures: Yes Hx Osteoporosis: No Hx Rheumatoid Arthritis: No - GASTROINTESTINAL Hx Crohn's Disease: No Hx Diverticulitis: No Hx Gall Bladder Disease: No Hx Gastritis: No Hx Pancreatitis: No - GENITOURINARY/GYNECOLOGICAL Hx Sexually Transmitted Disorders: No - PSYCHIATRIC Hx Anxiety: Yes Hx Bipolar Disorder: No Hx Depression: Yes Hx Schizophrenia: No Hx Substance Use: No - SURGICAL HISTORY Hx Appendectomy: Yes (SURG AT AGE 13) Hx Carotid Endarterectomy: No Hx Cholecystectomy: No Hx Coronary Artery Bypass Graft: No Hx Coronary Stent: No Hx Tonsillectomy: No - ANESTHESIA Hx Anesthesia: Yes Hx Anesthesia Reactions: No Hx Malignant Hyperthermia: No Meds Allergies/Adverse Reactions: Allergies Allergy/AdvReac Type Severity Reaction Status Date / Time No Known Allergies Allergy Verified 02/06/18 11:11 - Medications Medications: Current Medications Apixaban (Eliquis) 2.5 mg PO BID ALEX Piperacillin Sod/Tazobactam (Sod 3.375 gm/ Sodium Chloride) 100 mls @ 200 mls/hr IVPB Q8H ALEX; Protocol Sodium Chloride (Sodium Chloride 0.9%) 1,000 mls @ 75 mls/hr IV .[id number] ALEX Lorazepam (Ativan) 1 mg PO BID PRN PRN Reason: Agitation Mirtazapine (Remeron) 45 mg PO HS ALEX Venlafaxine HCl (Effexor Xr) 75 mg PO QAM ALEX Venlafaxine HCl (Effexor Xr) 150 mg PO QPM ALEX Results - Vital Signs Recent Vital Signs: Last Vital Signs Temp 98.4 F 02/06/18 16:00 Pulse 65 02/06/18 16:00 Resp 20 02/06/18 16:00 BP 141/77 02/06/18 16:00 Pulse Ox 98 02/06/18 16:00 - Labs Result Diagrams: 02/06/18 18:28 02/06/18 18:28 Labs: Laboratory Results - last 24 hr 02/06/18 02/06/18 02/06/18 11:04 11:39 11:39 WBC 8.3 D RBC 4.07 Hgb 12.6 Hct 37.7 MCV 92.5 MCH 30.9 MCHC 33.4 RDW 15.3 H Plt Count 240 MPV 7.8 Neut % (Auto) 72.7 Lymph % (Auto) 17.2 L [place] % (Auto) 7.5 Eos % (Auto) 1.9 Baso % (Auto) 0.7 Neut # (Auto) 6.0 Lymph # (Auto) 1.4 [place] # (Auto) 0.6 Eos # (Auto) 0.2 Baso # (Auto) 0.1 PT 14.8 H INR 1.4 APTT 34 pO2 VBG pH VBG pCO2 VBG HCO3 VBG Total CO2 VBG O2 Sat (Calc) VBG Base Excess VBG Potassium Glucose Lactate Crit Value Called To Crit Value Called By Crit Value Read Back Blood Gas Notified Time Sodium Potassium Chloride Carbon Dioxide Anion Gap BUN Creatinine Est GFR ( Amer) Est GFR (Non-Af Amer) POC Glucose (mg/dL) 246 H Random Glucose Calcium Phosphorus Magnesium Total Bilirubin AST ALT Alkaline Phosphatase Troponin I NT-Pro-B Natriuret Pep Total Protein Albumin Globulin Albumin/Globulin Ratio Venous Blood Potassium Urine Color Urine Clarity Urine pH Ur Specific [place] Urine Protein Urine Glucose (UA) Urine Ketones Urine Blood Urine Nitrate Urine Bilirubin Urine Urobilinogen Ur Leukocyte Esterase Urine WBC (Auto) Urine RBC (Auto) Urine WBC Clumps (Auto) Ur Squamous Epith Cells Urine Bacteria Hyaline Casts 02/06/18 02/06/18 02/06/18 11:39 11:41 12:04 WBC RBC Hgb Hct MCV MCH MCHC RDW Plt Count MPV Neut % (Auto) Lymph % (Auto) [place] % (Auto) Eos % (Auto) Baso % (Auto) Neut # (Auto) Lymph # (Auto) [place] # (Auto) Eos # (Auto) Baso # (Auto) PT INR APTT pO2 50 VBG pH 7.41 VBG pCO2 53 VBG HCO3 30.3 VBG Total CO2 35.2 H VBG O2 Sat (Calc) 88.7 H VBG Base Excess 7.3 H VBG Potassium 3.5 L Glucose 230 H Lactate 4.5 H* Crit Value Called To Crit Value Called By Sergei brooke picture hanger Crit Value Read Back Y Blood Gas Notified Time 1150 Sodium 138 139.0 Potassium 3.7 Chloride 92 L 100.0 Carbon Dioxide 32 H Anion Gap 18 BUN 28 H Creatinine 2.6 H Est GFR ( Amer) 21 Est GFR (Non-Af Amer) 18 POC Glucose (mg/dL) Random Glucose 235 H Calcium 14.6 H* D Phosphorus 3.9 Magnesium 2.1 Total Bilirubin 0.5 AST 33 ALT 32 Alkaline Phosphatase 108 Troponin I 0.0260 NT-Pro-B Natriuret Pep 1400 H Total Protein 7.8 Albumin 4.0 Globulin 3.8 Albumin/Globulin Ratio 1.1 Venous Blood Potassium 3.5 L Urine Color Urvashi Urine Clarity Hazy Urine pH 6.0 Ur Specific [place] 1.011 Urine Protein 2+ H Urine Glucose (UA) Normal Urine Ketones Negative Urine Blood 3+ H Urine Nitrate Negative Urine Bilirubin Negative Urine Urobilinogen Normal Ur Leukocyte Esterase 3+ H Urine WBC (Auto) 303 H Urine RBC (Auto) 17 H Urine WBC Clumps (Auto) Few H Ur Squamous Epith Cells < 1 Urine Bacteria Many H Hyaline Casts 6-10 H 02/06/18 02/06/18 02/06/18 14:39 18:28 18:28 WBC 7.6 RBC 3.49 L Hgb 11.1 Hct 32.1 L MCV 92.0 MCH 31.7 H MCHC 34.5 RDW 14.9 H Plt Count 196 MPV 7.5 Neut % (Auto) 69.7 Lymph % (Auto) 20.6 [place] % (Auto) 7.3 Eos % (Auto) 2.1 Baso % (Auto) 0.3 Neut # (Auto) 5.3 Lymph # (Auto) 1.6 [place] # (Auto) 0.6 Eos # (Auto) 0.2 Baso # (Auto) 0.0 PT INR APTT pO2 15 L VBG pH 7.31 L VBG pCO2 78 H* VBG HCO3 30.4 VBG Total CO2 41.7 H VBG O2 Sat (Calc) 21.2 L VBG Base Excess 9.8 H VBG Potassium 3.4 L Glucose 185 H Lactate 3.1 H Crit Value Called To Crit Value Called By Chapincito beauchamp,roberth Crit Value Read Back Y Blood Gas Notified Time 1445 Sodium 139.0 138 Potassium 3.5 L Chloride 99.0 93 L Carbon Dioxide 37 H Anion Gap 11 BUN 25 H Creatinine 2.2 H Est GFR ( Amer) 26 Est GFR (Non-Af Amer) 22 POC Glucose (mg/dL) Random Glucose 188 H Calcium 13.0 H* Phosphorus 3.5 Magnesium 1.9 Total Bilirubin 0.4 AST 29 ALT 32 Alkaline Phosphatase 90 Troponin I NT-Pro-B Natriuret Pep Total Protein 6.4 Albumin 3.2 L Globulin 3.1 Albumin/Globulin Ratio 1.0 Venous Blood Potassium 3.4 L Urine Color Urine Clarity Urine pH Ur Specific [place] Urine Protein Urine Glucose (UA) Urine Ketones Urine Blood Urine Nitrate Urine Bilirubin Urine Urobilinogen Ur Leukocyte Esterase Urine WBC (Auto) Urine RBC (Auto) Urine WBC Clumps (Auto) Ur Squamous Epith Cells Urine Bacteria Hyaline Casts
[2018-02-06] MEDS: Piperacillin/Tazobact 3.375 GM in Sodium Chloride 100 ML IVPB SCH (19:27)
[2018-02-07] MEDS: Piperacillin/Tazobact 3.375 GM in Sodium Chloride 100 ML IVPB SCH ×3 (04:15→19:30)
--- NOTE | 2018-02-07 07:50 | CON ---
DATE: 02/06/2018 RENAL CONSULTATION REQUESTED BY: Roz Lunsford MD REASON FOR EVALUATION: Increased BUN and creatinine, questionable chronic kidney disease and hypercalcemia. HISTORY OF PRESENT ILLNESS: The patient is a very poor historian. Chart reviewed, and history obtained from the review of the chart. The patient is a 77-year-old obese elderly female with a history of longstanding hypertension, diabetes, hyperlipidemia, atrial fibrillation, CHF, CAD, depression, and status post AICD placement, who was brought in by her [id number] for evaluation of confusion which has been present for the last 3 days and responding slowly to questions and appears responsive below her baseline. The patient was found to have elevated BUN and creatinine, and also hypercalcemia, and renal consult requested for evaluation of hypercalcemia. Unable to get any history from the patient. PAST MEDICAL HISTORY: Significant for longstanding hypertension, diabetes, hyperlipidemia, AFib, CHF, CAD, and depression. PAST SURGICAL HISTORY: Status post questionable umbilical hernia repair and also status post AICD placement. ALLERGIES: NO KNOWN DRUG ALLERGIES. SOCIAL HISTORY: No smoking. No alcohol. No drugs. FAMILY HISTORY: Not significant. CURRENT MEDICATIONS: Include Ativan 1 mg p.o. b.i.d., Effexor 75 mg p.o. q.a.m. and 150 mg p.o. q.p.m., Eliquis 2.5 mg p.o. b.i.d., Zosyn 3.375 g IV every 8 hours, Remeron 45 mg p.o. at bedtime, and IV fluids started at 75 mL per hour. REVIEW OF SYSTEMS: Significant for decreased response and also generalized weakness. All other review of systems are reviewed and are negative. PHYSICAL EXAMINATION: VITAL SIGNS: Blood pressure 141/77, pulse 65, respirations 20, temperature 98.4, and saturation 98%. Height 5 feet 7 inches, weight is 250 pounds, BMP 39.2. GENERAL: The patient is a 77-year-old elderly female, well built, well nourished, not in distress, responding to simple commands. HEENT: Pupils normal, reactive to light and accommodation. Conjunctivae pink. Sclerae anicteric. Tongue is moist, and trachea is midline. LUNGS: Symmetric on both sides. Bilateral breath sounds present. Clear to auscultation. CARDIOVASCULAR SYSTEM: Dumont at the fifth intercostal space and midclavicular line. S1, S2 audible. No murmur. No gallop. The patient has a pacemaker in the left subclavian region. ABDOMEN: Soft, tympanic. No guarding. No rigidity. No hepatosplenomegaly. CENTRAL NERVOUS SYSTEM: The patient is awake, following simple commands. EXTREMITIES: No cyanosis, no clubbing, no edema. LABORATORY DATA: Include as follows: As of 02/06/2018, WBC 8.3, hemoglobin 12.6, hematocrit is 37.7, platelets 240. PT 14.8, PTT 34. Lactic acid 4.5. Sodium 138, potassium 3.7, chloride 92, CO2 of 32, BUN 28, creatinine 2.6, glucose 235, calcium 14.6, phosphorus 3.9, magnesium 2.1. Total bili 0.5, AST 33, ALT 32, alkaline phosphatase 108, proBNP 1400, total protein , albumin is 4. Urinalysis: Urvashi, hazy, pH 6, specific gravity 1.011, protein 2+, glucose normal, ketones negative, blood 3+, leukocyte esterase 3+, wbc 303, bacteria many. Chest x-ray, no active disease. ASSESSMENT: In summary, the patient is a 77-year-old elderly female with a baseline creatinine about 1.9 on 09/29/2017, and on 10/02/2017, serum creatinine 1.5 with normal calcium level 8.1 on 10/02/2017. 1. Acute renal failure on chronic kidney disease. 2. Hypercalcemia, most likely secondary to dehydration. 3. Mild dehydration. PLAN: I agree with IV fluids and normal saline at 75 mL per hour, and repeat CBC and BMP tonight and in the morning, and also check PTH intact level and vitamin D level, and continue IV antibiotics for possible UTI. Susana Ye MD
[2018-02-07] MEDS: Sodium Chloride 0.9% 1,000 ML IV SCH ×3 (08:44→22:23)
[2018-02-07] MEDS ORDERED: Iohexol 240 (50 ml) PO ONE (09:00)
[2018-02-07] MEDS ORDERED: Venlafaxine 75 mg ER Cap PO SCH ×3 (10:00→12:38)
[2018-02-07] MEDS: Venlafaxine 75 mg ER Cap PO SCH (13:30)
--- NOTE | 2018-02-07 14:01 | CT ---
Date of service: 02/07/2018 PROCEDURE: CT Chest, Abdomen and Pelvis without intravenous contrast HISTORY: Hypercalcemia. COMPARISON: Correlation made with chest radiograph 02/06/2018. The the TECHNIQUE: Radiation dose: Total exam DLP = 1797.47 mGy-cm. This CT exam was performed using one or more of the following dose reduction techniques: Automated exposure control, adjustment of the mA and/or kV according to patient size, and/or use of iterative reconstruction technique. FINDINGS: CT CHEST WITHOUT CONTRAST: LUNGS: Lung girard demonstrate tiny left and suspected trace right-sided effusions. There appears to be some minor passive/dependent type atelectasis both posterior lower lung girard. No pulmonary masses. MEDIASTINUM: Heart size is within range of normal. No significant pericardial effusion Re demonstrated is multi lead pacemaker/defibrillator. Ascending thoracic aorta measures approximately 3.25 cm and descending thoracic aorta measures approximately 3.0 cm. Pulmonary trunk measures 3.35 cm. There are a few small nonspecific mediastinal lymph nodes. Evaluation for adenopathy is limited due to the lack of circulating intravenous contrast material. Central airways midline and patent. No large central endoluminal lesions. There is a tiny hiatal hernia. LYMPH NODES: As above PLEURA: As above. No evidence of pneumothorax BONES: Mild multilevel degenerative spondylosis of the thoracic spine. There are no acute compression fractures however note made of mild chronic appearing right lateral stature loss of the T4 segment with very slight lateral right lateral subluxation C3 over T4. There is resultant levoscoliosis centered at this level.. No suspicious lytic or blastic lesions. OTHER FINDINGS: None. CT ABDOMEN AND PELVIS: LIVER: Liver exhibits relatively normal size and attenuation pattern without mass collection or calcification. GALLBLADDER AND BILE DUCTS: Gallbladder is physiologically distended. No evidence of intraluminal gallbladder calculi. PANCREAS: Pancreas is somewhat atrophic and fatty replaced. No obvious pancreatic mass collection or calcification identified on this noncontrast. No gross lesion or ductal dilatation. SPLEEN: There is a tiny splenule adjacent to the main body of the spleen. No obvious masses or collections. ADRENALS: There are small bilateral adrenal nodules right-side of which is consistent with a small adenoma based on Hounsfield units in the low single digits... The left adrenal nodule exhibits Hounsfield units in the mid 16 that may also represent a small adenoma as well. Followup interval recommended to assess stability. KIDNEYS AND URETERS: There is a large nonobstructing calculus seen upper/mid pole collecting system right kidney.. There is a punctate calcifications seen in upper pole collecting system left kidney. No evidence of hydronephrosis. Infiltration changes are seen in the perinephric fat bilaterally.. VASCULATURE: Unremarkable. No aortic aneurysm. BOWEL: Evaluation of the bowel limited due to the lack of oral contrast material. Stomach is distended with air. Visualized loops small bowel exhibit normal contour and caliber no evidence of mechanical small bowel obstruction. Moderate amount of stool seen throughout the cecum and at ascending as well as proximal transverse colon suggesting mild fecal retention/constipation. Multiple colonic diverticula seen along the sigmoid and distal descending however no radiographic evidence of diverticulitis.. No definitive mural wall thickening APPENDIX: Appendix is not seen with certainty however no definitive radiographic evidence of acute appendicitis. PERITONEUM: Unremarkable. No free fluid. No free air. There is a small fat containing umbilical hernia. LYMPH NODES: Unremarkable. No enlarged lymph nodes. BLADDER: Urinary bladder is incompletely distended which in part accounts for thick-walled appearance. Correlation urinalysis recommended to exclude UTI. REPRODUCTIVE: Uterus unremarkable BONES: Mild multilevel degenerative spondylosis of the lumbar spine. There are no acute compression fractures nor retropulsed fragments. OTHER FINDINGS: None. IMPRESSION: . tiny left and suspected trace right-sided effusions. There appears to be some minor passive/dependent type atelectasis both posterior lower lung girard. No pulmonary masses. Nonobstructing calculus collecting system right kidney. There are bilateral perinephric infiltration changes nonspecific. Bilateral adrenal adenomas felt present however follow-up CT scan at interval could be performed to assess stability. Diverticulosis without radiographic evidence of diverticulitis. See above discussion for additional details findings and recommendations.
--- NOTE | 2018-02-07 17:11 | CP.PCM.PN ---
Subjective - Date & Time of Evaluation Date of Evaluation: 02/07/18 Time of Evaluation: 17:11 - Subjective Subjective: pt is not in acute distress, no cp, no palpitation, no nausea, no vomitings Objective - Vital Signs/Intake and Output Vital Signs (last 24 hours): Temp Pulse Resp BP Pulse Ox 97.4 F L 74 20 107/66 96 02/07/18 15:00 02/07/18 15:00 02/07/18 15:00 02/07/18 15:00 02/07/18 15:00 Intake and Output: 02/07/18 02/07/18 06:59 18:59 Intake Total 550 675 Output Total 650 800 Balance -100 -125 - Medications Medications: Current Medications Apixaban (Eliquis) 2.5 mg PO BID [facility] Last Admin: 02/07/18 11:22 Dose: 2.5 mg Betamethasone/Clotrimazole (Lotrisone) 0 gm TOP BID [facility] Sodium Chloride (Sodium Chloride 0.9%) 1,000 mls @ 75 mls/hr IV .[id number] [facility] Last Admin: 02/07/18 13:32 Dose: 75 mls/hr Piperacillin Sod/Tazobactam (Sod 3.375 gm/ Sodium Chloride) 100 mls @ 200 mls/hr IVPB Q8H [facility]; Protocol Last Admin: 02/07/18 13:29 Dose: 200 mls/hr Lorazepam (Ativan) 1 mg PO BID PRN PRN Reason: Agitation Mirtazapine (Remeron) 45 mg PO HS [facility] Last Admin: 02/06/18 22:36 Dose: 45 mg Venlafaxine HCl (Effexor Xr) 225 mg PO QAM [facility] Last Admin: 02/07/18 13:30 Dose: 225 mg - Labs Labs: 02/06/18 18:28 02/06/18 18:28 PT 14.8 SECONDS (9.7-12.2) H 02/06/18 11:39 INR 1.4 02/06/18 11:39 APTT 34 SECONDS (21-34) 02/06/18 11:39 - Constitutional Appears: No Acute Distress - Head Exam Head Exam: ATRAUMATIC, NORMAL INSPECTION, NORMOCEPHALIC - Eye Exam Eye Exam: EOMI, Normal appearance, PERRL Pupil Exam: NORMAL ACCOMODATION, PERRL - ENT Exam ENT Exam: Mucous Membranes Moist - Neck Exam Neck Exam: Full ROM, Normal Inspection - Respiratory Exam Respiratory Exam: Clear to Ausculation Bilateral, NORMAL BREATHING PATTERN - Cardiovascular Exam Cardiovascular Exam: REGULAR RHYTHM, +S1, +S2 - GI/Abdominal Exam GI & Abdominal Exam: Soft, Normal Bowel Sounds - Rectal Exam Rectal Exam: Deferred - Neurological Exam Neurological Exam: Alert, Awake - Skin Skin Exam: Normal Color, Warm Assessment and Plan - Assessment and Plan (Free Text) Assessment: 77 yo female with multiple medical problems was admitted with decreased po intake, increased bun/cr , hypercalcemia 1. Oni on ckd-3 2. dehydration 3. hypercalemia calcium is slowly improving c/w iv hydration f/u bmp, ca level
[2018-02-07 17:55] LABS: BASO % 0.5 % (0.0-2.0); EOS # 0.2 K/uL (0.0-0.7); EOS % 3.3 % (0.0-4.0); LYMPH # 1.4 K/uL (1.0-4.3); LYMPH % 21.9 % (20.0-40.0); MEAN CELL VOLUME 92.4 fL (81.0-99.0); MEAN CORPUSCULAR HEMOGLOBIN 31.4 pg (27.0-31.0); MEAN CORPUSCULAR HGB CONC 33.9 g/dL (33.0-37.0); MEAN PLATELET VOLUME 7.8 fL (7.2-11.7); MONO # 0.5 K/uL (0.0-0.8); MONO % 7.3 % (0.0-10.0); NEUT # 4.3 K/uL (1.8-7.0); NRBC % 0.1 % (0.0-2.0); RBC 3.52 Mil/uL (3.80-5.20); RED CELL DISTRIBUTION WIDTH 15.3 % (11.5-14.5); WHITE BLOOD COUNT 6.4 K/uL (4.8-10.8)
[2018-02-07 18:12] LABS: ALB/GLOB RATIO 1.1 (1.0-2.1); ALBUMIN 3.4 g/dL (3.5-5.0); CALCIUM 11.6 mg/dl (8.6-10.4)
--- NOTE | 2018-02-07 19:06 | CP.PCM.CON ---
History of Present Illness - History of Present Illness History of Present Illness: INFECTIOUS DISEASE CONSULT; HPI; 77-year-old female, with history of multiple medical problems including DM 2, HTN, HLD, atrial fibrillation, CHF,s/p CABG/AICD, coronary stent, arthritis and anxiety problems who was brought in on 02/06/18 with confusion, altered mental status, not eating and really NOT drinking water at home. Patient is monitored at home by home health aide who takes care of her every 2-4 hours per day. There is no history off loss of consciousness, loss of speech or any recent head trauma. In the ER patient was found to have elevated serum lactate of 4.5, elevated creatinine of 2.2/BUN 25, GFR of 22. And calcium of 13.0. Patient was therefore advised admission for possible sepsis questionable UTI as patient had pyuria with WBC of 303 ,3+ urinary leukocytes and many bacteria. Patient was given a dose of Rocephin 1 g and started on Zosyn 3.375 every 8 hourly. Patient has history off Enterococcus faecalis bacteremia in September 2017 when she was hospitalized at [facility]. History obtained mainly from the chart as patient unable to give any details and has periods of confusion. Patient also incontinent of urine and presently on external PUREWICK urinary catheter. Patient denies any cough or expectoration but does complain of lower abdominal pain and winces on pressure at suprapubic region. Infectious disease consultation requested by PMD for altered mental status and sepsis. PMH: Anxiety, Arthritis, Atrial Fibrillation, CAD, CHF, Depression, Diabetes, Fractures, HTN, Hypercholesterolemia, Peripheral Edema, CRI. Surgical History: Appendectomy (SURG AT AGE 13), Pacemaker Denies: CABG, Carotid Endarterectomy, Cholecystectomy, Coronary Stent, Tonsillectomy - [facility] Procedures INDIVID PSYCHOTHERAP NEC (08/12/14) INFLUENZA VACCINATION (02/16/14) NON-INVASIVE MECHANICAL VENTILATION (08/07/14) OTHER GROUP THERAPY (08/12/14) VACCINATION NEC (02/16/14) Family History: States: No Known Family Hx - Social History Hx Tobacco Use: No Hx Alcohol Use: No Hx Substance Use: No - Immunization History Hx Tetanus Toxoid Vaccination: No Hx Influenza Vaccination: No Hx Pneumococcal Vaccination: No. ALLERGY;NKA..HEMATOMA LEADING TO GIVE Review of Systems - Review of Systems Systems not reviewed;Unavailable: Dementia (PERIODS OF CONFUSION,AND FORGETFULNESS.) Past Patient History - Infectious Disease Hx of Infectious Diseases: None - Tetanus Immunizations Tetanus Immunization: Unknown - Past Medical History & Family History Past Medical History?: Yes - Past Social History Smoking Status: Never Smoked - CARDIAC Hx Atrial Fibrillation: Yes Hx Cardia Arrhythmia: No Hx Congestive Heart Failure: Yes Hx Hypercholesterolemia: Yes Hx Hypertension: Yes Hx Mitral Valve Prolapse: No Hx Pacemaker: Yes Hx Peripheral Edema: Yes - PULMONARY Hx Asthma: No Hx Bronchitis: No Hx Chronic Obstructive Pulmonary Disease (COPD): No Hx Emphysema: No Hx Pneumonia: No Hx Pulmonary Embolism: No Hx Sleep Apnea: No - NEUROLOGICAL Hx Alzheimer's Disease: No Hx Dementia: No Hx Migraine: No Hx Multiple Sclerosis: No Hx Parkinson's Disease: No Hx Seizures: No Hx Transient Ischemic Attacks (TIA): No - HEENT Hx HEENT Problems: No - RENAL Hx Chronic Kidney Disease: No Hx Kidney Stones: No - ENDOCRINE/METABOLIC Hx Hyperthyroidism: No Hx Hypothyroidism: No - HEMATOLOGICAL/ONCOLOGICAL Hx Anemia: No Hx Human Immunodeficiency Virus (HIV): No Hx Sickle Cell Disease: No - INTEGUMENTARY Hx Dermatological Problems: No - MUSCULOSKELETAL/RHEUMATOLOGICAL Hx Arthritis: Yes Hx Fractures: Yes Hx Osteoporosis: No Hx Rheumatoid Arthritis: No - GASTROINTESTINAL Hx Crohn's Disease: No Hx Diverticulitis: No Hx Gall Bladder Disease: No Hx Gastritis: No Hx Pancreatitis: No - GENITOURINARY/GYNECOLOGICAL Hx Sexually Transmitted Disorders: No - PSYCHIATRIC Hx Anxiety: Yes Hx Bipolar Disorder: No Hx Depression: Yes Hx Schizophrenia: No Hx Substance Use: No - SURGICAL HISTORY Hx Appendectomy: Yes (SURG AT AGE 13) Hx Carotid Endarterectomy: No Hx Cholecystectomy: No Hx Coronary Artery Bypass Graft: No Hx Coronary Stent: No Hx Tonsillectomy: No - ANESTHESIA Hx Anesthesia: Yes Hx Anesthesia Reactions: No Hx Malignant Hyperthermia: No Meds Allergies/Adverse Reactions: Allergies Allergy/AdvReac Type Severity Reaction Status Date / Time No Known Allergies Allergy Verified 02/06/18 11:11 - Medications Medications: Current Medications Apixaban (Eliquis) 2.5 mg PO BID [facility] Last Admin: 02/07/18 11:22 Dose: 2.5 mg Betamethasone/Clotrimazole (Lotrisone) 0 gm TOP BID [facility] Sodium Chloride (Sodium Chloride 0.9%) 1,000 mls @ 75 mls/hr IV .[id number] [facility] Last Admin: 02/07/18 13:32 Dose: 75 mls/hr Piperacillin Sod/Tazobactam (Sod 3.375 gm/ Sodium Chloride) 100 mls @ 200 mls /hr IVPB Q8H [facility]; Protocol Last Admin: 02/07/18 13:29 Dose: 200 mls/hr Lorazepam (Ativan) 1 mg PO BID PRN PRN Reason: Agitation Mirtazapine (Remeron) 45 mg PO HS [facility] Last Admin: 02/06/18 22:36 Dose: 45 mg Venlafaxine HCl (Effexor Xr) 225 mg PO QAM [facility] Last Admin: 02/07/18 13:30 Dose: 225 mg Physical Exam - Constitutional Appears: Confused Additional comments: MODERATELY OBESE FEMALE - Head Exam Head Exam: ATRAUMATIC, NORMAL INSPECTION - Eye Exam Eye Exam: EOMI, PERRL - ENT Exam ENT Exam: Mucous Membranes Dry, Mucous Membranes Moist - Neck Exam Neck exam: Positive for: Normal Inspection - Respiratory Exam Respiratory Exam: Clear to Auscultation Bilateral - Cardiovascular Exam Cardiovascular Exam: Irregular Rhythm, +S1, +S2, Systolic Murmur - GI/Abdominal Exam GI & Abdominal Exam: Hypoactive Bowel Sounds, Soft, Tenderness (LOWER ABDOMEN AND SUPRAPUBIC ON PRESSURE.). absent: Guarding - Extremities Exam Extremities exam: Positive for: pedal edema (1+), pedal pulses present. Negative for: calf tenderness - Neurological Exam Neurological exam: Alert, Altered, CN II-XII Intact - Psychiatric Exam Psychiatric exam: Flat Affect - Skin Skin Exam: Dry, Normal Color, Warm Results - Vital Signs Recent Vital Signs: Last Vital Signs Temp 97.4 F L 02/07/18 15:00 Pulse 74 02/07/18 15:00 Resp 20 02/07/18 15:00 BP 107/66 02/07/18 15:00 Pulse Ox 96 02/07/18 15:00 - Labs Result Diagrams: 02/07/18 17:47 02/08/18 08:04 Labs: Laboratory Results - last 24 hr 02/06/18 02/06/18 02/07/18 21:05 21:42 06:34 WBC RBC Hgb Hct MCV MCH MCHC RDW Plt Count MPV Neut % (Auto) Lymph % (Auto) [place] % (Auto) Eos % (Auto) Baso % (Auto) Neut # (Auto) Lymph # (Auto) [place] # (Auto) Eos # (Auto) Baso # (Auto) Sodium Potassium Chloride Carbon Dioxide Anion Gap BUN Creatinine Est GFR ( Amer) Est GFR (Non-Af Amer) POC Glucose (mg/dL) 141 H 145 H Random Glucose Calcium Phosphorus Magnesium Total Bilirubin AST ALT Alkaline Phosphatase Total Protein Albumin Globulin Albumin/Globulin Ratio 25-OH Vitamin D Total 36.0 02/07/18 02/07/18 02/07/18 11:37 16:13 17:47 WBC 6.4 RBC 3.52 L Hgb 11.0 Hct 32.5 L MCV 92.4 MCH 31.4 H MCHC 33.9 RDW 15.3 H Plt Count 215 MPV 7.8 Neut % (Auto) 67.0 Lymph % (Auto) 21.9 [place] % (Auto) 7.3 Eos % (Auto) 3.3 Baso % (Auto) 0.5 Neut # (Auto) 4.3 Lymph # (Auto) 1.4 [place] # (Auto) 0.5 Eos # (Auto) 0.2 Baso # (Auto) 0.0 Sodium Potassium Chloride Carbon Dioxide Anion Gap BUN Creatinine Est GFR ( Amer) Est GFR (Non-Af Amer) POC Glucose (mg/dL) 204 H 194 H Random Glucose Calcium Phosphorus Magnesium Total Bilirubin AST ALT Alkaline Phosphatase Total Protein Albumin Globulin Albumin/Globulin Ratio 25-OH Vitamin D Total 02/07/18 17:47 WBC RBC Hgb Hct MCV MCH MCHC RDW Plt Count MPV Neut % (Auto) Lymph % (Auto) [place] % (Auto) Eos % (Auto) Baso % (Auto) Neut # (Auto) Lymph # (Auto) [place] # (Auto) Eos # (Auto) Baso # (Auto) Sodium 141 Potassium 4.1 Chloride 97 L Carbon Dioxide 36 H Anion Gap 12 BUN 23 H Creatinine 2.2 H Est GFR ( Amer) 26 Est GFR (Non-Af Amer) 22 POC Glucose (mg/dL) Random Glucose 152 H Calcium 11.6 H Phosphorus 2.7 Magnesium 2.0 Total Bilirubin 0.2 AST 27 ALT 25 Alkaline Phosphatase 88 Total Protein 6.6 Albumin 3.4 L Globulin 3.2 Albumin/Globulin Ratio 1.1 25-OH Vitamin D Total - Imaging and Cardiology Chest x-ray Status: Report reviewed by me (no active disease.) Assessment & Plan (1) Sepsis Assessment and Plan: BLOOD CULTURES -VE TO DATE. Status: Acute (2) Change in mental status Assessment and Plan: ALTERED MENTAL STATUS MOST PROBABLY SECONDARY TO TOXIC METABOLIC ENCEPHALOPATHY. CORRECTION OF ELECTROLYTES AND IV FLUIDS PER RENAL. Status: Acute (3) UTI (urinary tract infection) Assessment and Plan: URINE CULTURE 02/06/18 + GNR/GPC AWAIT CULTURES TO ADJUST ABX. Status: Acute (4) Renal insufficiency Status: Acute (5) A-fib Status: Chronic Priority: Low (6) HTN (hypertension) Status: Chronic Priority: Medium (7) Obesity Status: Chronic (8) DM type 2 (diabetes mellitus, type 2) Status: Chronic Priority: Medium - Assessment and Plan (Free Text) Plan: PLAN; pANCULTURES ESR CRP. C2, C4,CH50 C3 RH FACTOR. 2D ECHO R/O VEGETATIONS. CONTINUE iv zOSYN 3.375 EVERY 8 HOURLY 02/06/18 ADD IV DOXYCYCLINE 100 MG iv PIGGYBACK 8 HOURLY FOR NOW WHILE AWAITING CULTURES. 02/07/18. CONSIDER CT OF THE ABDOMEN AND PELVIS WITHOUT CONTRAST RULE OUT MASS/COLLECTION/ABSCESS hYDRONEPHROSIS/CYST KIDNEYS. REPEAT UA/URINE CULTURE -CLEAN CATCH TODAY BEFORE INITIATING DOXYCYCLINE. NEPHROLOGY ON BOARD, iv FLUIDS PER RENAL. WILL FOLLOW ALONG WITH YOU . THANK YOU.
[2018-02-07] MEDS: Clotrimazole/Betamethasone Cream(15 gm) TOP SCH (19:39)
[2018-02-08] MEDS: Piperacillin/Tazobact 3.375 GM in Sodium Chloride 100 ML IVPB SCH ×3 (04:29→19:32)
[2018-02-08 06:56] LABS: URINE BACTERIA RARE (<OCC); URINE BILIRUBIN NEGATIVE (NEGATIVE); URINE CLARITY Clear (Clear); URINE COLOR Straw (YELLOW); URINE GLUCOSE (UA) 1+ mg/dL (Normal); URINE LEUKOCYTE ESTERASE 3+ Leu/uL (Negative); URINE PROTEIN NEGATIVE (NEGATIVE); URINE UROBILINOGEN NORMAL mg/dL (0.2-1.0)
[2018-02-08 06:57] LABS: URINE BLOOD TRACE (NEGATIVE)
[2018-02-08 08:28] LABS: CALCIUM 10.9 mg/dl (8.6-10.4)
--- NOTE | 2018-02-08 09:46 | CP.PCM.HP ---
History of Present Illness - History of Present Illness History of Present Illness: Chief complain: Patient was having increasing weakness, fatigue and feeling dosing of. HPI: 77-year-old female with a history of hypertension diabetes Crory artery disease high cholesterol atrial fibrillation pacemaker, V. tach and is status post AICD, anxiety, depression. Arthritis, weakness and dementia. Patient was in her usual state of health. For 3 days she was started having some slowing in her activities, this morning time she was not responding. She was not eating well. According to the patient's daughter she was having increasing lethargic. She was not eating anything this morning. When she is trying to hold something she is dropping. She was very poorly responding this morning. So Called ambulance, brought into the emergency room. Patient was continued to have altered mental status in the emergency room. Evaluation was done. CAT scan were negative Suspected urinary tract infection, needed hospitalization. Past medical history: Hypertension, diabetes, high cholesterol, CAD, atrial fibrillation, V. tach, st [facility] post ACD, depression and anxiety Allergies no known drug allergy Personal history: Lifelong nonsmoker nonalcoholic Patient lives in the family members. Surgical history: Bilateral knee replacement. Pacemaker ACD Family history noncontributory Review of systems noted from the chart. Mild headache. Dementia noted, no chest pain, shortness of breath noted occasionally. Complaining of generalized body pain. Patient had altered mental status yesterday, currently feeling well. Examination: Vital signs noted to be on the low blood pressure side. Chest good air entry Regular heart sound, pacemaker Abdomen was not tender. Obesity present. Patient has bilateral leg edema. Labs reviewed Elevated Bun and creatinine compared to baseline noted Also elevated at calcium level noted CAT scan of the head is negative, chest x-ray nonspecific Assessment and recommendation: 77-year-old female with a history of hypertension diabetes high cholesterol CAD status post ACD. Atrial fibrillation. Admitted now with a possible urinary tract infection, contributing the altered mental status. Associated with worsening dehydration, and hypercalcemia. Is unclear at this time about the hypercalcemia most likely dehydration. Will hydrate the patient. Altered mental status most likely related to electrolyte imbalance associated urinary tract infection. DVT GI prophylaxis. Spoke to the patient's daughter. Infectious disease, nephrology evaluation and will follow-up the patient Present on Admission - Present on Admission Any Indicators Present on Admission: No History of DVT/PE: No History of Uncontrolled Diabetes: No Urinary Catheter: No Decubitus Ulcer Present: No Past Patient History - Infectious Disease Hx of Infectious Diseases: None - Tetanus Immunizations Tetanus Immunization: Unknown - Past Medical History & Family History Past Medical History?: Yes - Past Social History Smoking Status: Never Smoked - CARDIAC Hx Atrial Fibrillation: Yes Hx Cardia Arrhythmia: No Hx Congestive Heart Failure: Yes Hx Hypercholesterolemia: Yes Hx Hypertension: Yes Hx Mitral Valve Prolapse: No Hx Pacemaker: Yes Hx Peripheral Edema: Yes - PULMONARY Hx Asthma: No Hx Bronchitis: No Hx Chronic Obstructive Pulmonary Disease (COPD): No Hx Emphysema: No Hx Pneumonia: No Hx Pulmonary Embolism: No Hx Sleep Apnea: No - NEUROLOGICAL Hx Alzheimer's Disease: No Hx Dementia: No Hx Migraine: No Hx Multiple Sclerosis: No Hx Parkinson's Disease: No Hx Seizures: No Hx Transient Ischemic Attacks (TIA): No - HEENT Hx HEENT Problems: No - RENAL Hx Chronic Kidney Disease: No Hx Kidney Stones: No - ENDOCRINE/METABOLIC Hx Hyperthyroidism: No Hx Hypothyroidism: No - HEMATOLOGICAL/ONCOLOGICAL Hx Anemia: No Hx Human Immunodeficiency Virus (HIV): No Hx Sickle Cell Disease: No - INTEGUMENTARY Hx Dermatological Problems: No - MUSCULOSKELETAL/RHEUMATOLOGICAL Hx Arthritis: Yes Hx Fractures: Yes Hx Osteoporosis: No Hx Rheumatoid Arthritis: No - GASTROINTESTINAL Hx Crohn's Disease: No Hx Diverticulitis: No Hx Gall Bladder Disease: No Hx Gastritis: No Hx Pancreatitis: No - GENITOURINARY/GYNECOLOGICAL Hx Sexually Transmitted Disorders: No - PSYCHIATRIC Hx Anxiety: Yes Hx Bipolar Disorder: No Hx Depression: Yes Hx Schizophrenia: No Hx Substance Use: No - SURGICAL HISTORY Hx Appendectomy: Yes (SURG AT AGE 13) Hx Carotid Endarterectomy: No Hx Cholecystectomy: No Hx Coronary Artery Bypass Graft: No Hx Coronary Stent: No Hx Tonsillectomy: No - ANESTHESIA Hx Anesthesia: Yes Hx Anesthesia Reactions: No Hx Malignant Hyperthermia: No Meds Allergies/Adverse Reactions: Allergies Allergy/AdvReac Type Severity Reaction Status Date / Time No Known Allergies Allergy Verified 02/06/18 11:11 Results - Vital Signs Recent Vital Signs: Last Vital Signs Temp 98.4 F 02/08/18 08:40 Pulse 80 02/08/18 08:40 Resp 20 02/08/18 08:40 BP 117/55 L 02/08/18 08:40 Pulse Ox 94 L 02/08/18 08:40 - Labs Result Diagrams: 02/07/18 17:47 10/06/18 08:04 Labs: Laboratory Results - last 24 hr 02/07/18 02/07/18 02/07/18 06:34 11:37 16:13 WBC RBC Hgb Hct MCV MCH MCHC RDW Plt Count MPV Neut % (Auto) Lymph % (Auto) [place] % (Auto) Eos % (Auto) Baso % (Auto) Neut # (Auto) Lymph # (Auto) [place] # (Auto) Eos # (Auto) Baso # (Auto) Sodium Potassium Chloride Carbon Dioxide Anion Gap BUN Creatinine Est GFR ( Amer) Est GFR (Non-Af Amer) POC Glucose (mg/dL) 145 H 204 H 194 H Random Glucose Calcium Phosphorus Magnesium Total Bilirubin AST ALT Alkaline Phosphatase Total Protein Albumin Globulin Albumin/Globulin Ratio Urine Color Urine Clarity Urine pH Ur Specific [place] Urine Protein Urine Glucose (UA) Urine Ketones Urine Blood Urine Nitrate Urine Bilirubin Urine Urobilinogen Ur Leukocyte Esterase Urine WBC (Auto) Urine RBC (Auto) Urine Bacteria 02/07/18 02/07/18 02/07/18 17:47 17:47 21:19 WBC 6.4 RBC 3.52 L Hgb 11.0 Hct 32.5 L MCV 92.4 MCH 31.4 H MCHC 33.9 RDW 15.3 H Plt Count 215 MPV 7.8 Neut % (Auto) 67.0 Lymph % (Auto) 21.9 [place] % (Auto) 7.3 Eos % (Auto) 3.3 Baso % (Auto) 0.5 Neut # (Auto) 4.3 Lymph # (Auto) 1.4 [place] # (Auto) 0.5 Eos # (Auto) 0.2 Baso # (Auto) 0.0 Sodium 141 Potassium 4.1 Chloride 97 L Carbon Dioxide 36 H Anion Gap 12 BUN 23 H Creatinine 2.2 H Est GFR ( Amer) 26 Est GFR (Non-Af Amer) 22 POC Glucose (mg/dL) 174 H Random Glucose 152 H Calcium 11.6 H Phosphorus 2.7 Magnesium 2.0 Total Bilirubin 0.2 AST 27 ALT 25 Alkaline Phosphatase 88 Total Protein 6.6 Albumin 3.4 L Globulin 3.2 Albumin/Globulin Ratio 1.1 Urine Color Urine Clarity Urine pH Ur Specific [place] Urine Protein Urine Glucose (UA) Urine Ketones Urine Blood Urine Nitrate Urine Bilirubin Urine Urobilinogen Ur Leukocyte Esterase Urine WBC (Auto) Urine RBC (Auto) Urine Bacteria 02/08/18 02/08/18 06:34 08:04 WBC RBC Hgb Hct MCV MCH MCHC RDW Plt Count MPV Neut % (Auto) Lymph % (Auto) [place] % (Auto) Eos % (Auto) Baso % (Auto) Neut # (Auto) Lymph # (Auto) [place] # (Auto) Eos # (Auto) Baso # (Auto) Sodium 142 Potassium 3.8 Chloride 100 Carbon Dioxide 33 H Anion Gap 13 BUN 20 H Creatinine 2.2 H Est GFR ( Amer) 26 Est GFR (Non-Af Amer) 22 POC Glucose (mg/dL) Random Glucose 143 H Calcium 10.9 H Phosphorus Magnesium Total Bilirubin AST ALT Alkaline Phosphatase Total Protein Albumin Globulin Albumin/Globulin Ratio Urine Color Straw Urine Clarity Clear Urine pH 7.0 Ur Specific [place] 1.006 Urine Protein Negative Urine Glucose (UA) 1+ Urine Ketones Negative Urine Blood Trace H Urine Nitrate Negative Urine Bilirubin Negative Urine Urobilinogen Normal Ur Leukocyte Esterase 3+ H Urine WBC (Auto) 5 Urine RBC (Auto) 1 Urine Bacteria Rare
--- NOTE | 2018-02-08 09:47 | CP.PCM.PN ---
Subjective - Date & Time of Evaluation Date of Evaluation: 02/07/18 Time of Evaluation: 14:01 - Subjective Subjective: Patient is very comfortable today. No pain. No chest pain. Slightly eating better. Still having difficult time in getting up and moving. Family at bedside. Chest bilateral good air entry Regular heart sound. Edema slightly increasing bleeding noted. Currently on IV fluid. Urinary output is better patient has purewick drainage.. Labs reviewed Slight improvement in the renal function, and calcium level noted Cultures urine culture is pending. Assessment: 77-year-old female with multiple medical problems admitted with altered mental status secondary to electrolytic imbalance. Renal failure acute likely secondary to dehydration. Hypercalcemia slight improvement. Unlikely secondary to underlying malignancy. CAT scan of the abdomen and pelvis pending. Nephrology evaluation. Will follow-up the patient Objective - Vital Signs/Intake and Output Vital Signs (last 24 hours): Temp Pulse Resp BP Pulse Ox 98.4 F 80 20 117/55 L 94 L 02/08/18 08:40 02/08/18 08:40 02/08/18 08:40 02/08/18 08:40 02/08/18 08:40 Intake and Output: 02/08/18 02/08/18 06:59 18:59 Intake Total 1225 Output Total 800 Balance 425 - Medications Medications: Current Medications Apixaban (Eliquis) 2.5 mg PO BID [facility] Last Admin: 02/07/18 19:39 Dose: 2.5 mg Betamethasone/Clotrimazole (Lotrisone) 0 gm TOP BID [facility] Last Admin: 02/07/18 19:39 Dose: 1 applic Sodium Chloride (Sodium Chloride 0.9%) 1,000 mls @ 75 mls/hr IV .[id number] [facility] Last Admin: 02/07/18 22:23 Dose: Not Given Piperacillin Sod/Tazobactam (Sod 3.375 gm/ Sodium Chloride) 100 mls @ 200 mls/hr IVPB Q8H [facility]; Protocol Last Admin: 02/08/18 04:29 Dose: 200 mls/hr Doxycycline Hyclate 100 mg/ (Sodium Chloride) 100 mls @ 100 mls/hr IVPB Q12H [facility]; Protocol Last Admin: 02/07/18 20:11 Dose: 100 mls/hr Lorazepam (Ativan) 1 mg PO BID PRN PRN Reason: Agitation Mirtazapine (Remeron) 45 mg PO HS [facility] Last Admin: 02/07/18 22:21 Dose: 45 mg Venlafaxine HCl (Effexor Xr) 225 mg PO QAM [facility] Last Admin: 02/07/18 13:30 Dose: 225 mg - Labs Labs: 02/07/18 17:47 02/08/18 08:04 PT 14.8 SECONDS (9.7-12.2) H 02/06/18 11:39 INR 1.4 02/06/18 11:39 APTT 34 SECONDS (21-34) 02/06/18 11:39
[2018-02-08] MEDS: Venlafaxine 75 mg ER Cap PO SCH (10:00)
[2018-02-08] MEDS: Sodium Chloride 0.9% 1,000 ML IV SCH ×2 (10:35→23:20)
[2018-02-08] MEDS: Clotrimazole/Betamethasone Cream(15 gm) TOP SCH ×2 (11:31→19:34)
--- NOTE | 2018-02-08 14:04 | CP.PCM.PN ---
Subjective - Date & Time of Evaluation Date of Evaluation: 02/08/18 Time of Evaluation: 14:03 - Subjective Subjective: Patient is very comfortable today. No pain. No chest pain. Slightly eating better. Still having difficult time in getting up and moving. Family at bedside. Chest bilateral good air entry Regular heart sound. Edema slightly increasing bleeding noted. Currently on IV fluid. Urinary output is better patient has purewick drainage.. Labs reviewed Slight improvement in the renal function, and calcium level noted Culture showing gram-negative bacteria Assessment: 77-year-old female with multiple medical problems admitted with altered mental status secondary to electrolytic imbalance. Renal failure acute likely secondary to dehydration. CAT scan of the abdomen and pelvis negative for any malignancy. Likely secondary to dehydration. Continue the IV hydration. And will follow-up the patient Objective - Vital Signs/Intake and Output Vital Signs (last 24 hours): Temp Pulse Resp BP Pulse Ox 98.4 F 80 20 117/55 L 94 L 02/08/18 08:40 02/08/18 08:40 02/08/18 08:40 02/08/18 08:40 02/08/18 08:40 Intake and Output: 02/08/18 02/08/18 06:59 18:59 Intake Total 1225 Output Total 800 Balance 425 - Medications Medications: Current Medications Apixaban (Eliquis) 2.5 mg PO BID [facility] Last Admin: 02/08/18 10:00 Dose: 2.5 mg Betamethasone/Clotrimazole (Lotrisone) 0 gm TOP BID [facility] Last Admin: 02/08/18 11:31 Dose: 1 applic Sodium Chloride (Sodium Chloride 0.9%) 1,000 mls @ 75 mls/hr IV .[id number] [facility] Last Admin: 02/08/18 10:35 Dose: 75 mls/hr Piperacillin Sod/Tazobactam (Sod 3.375 gm/ Sodium Chloride) 100 mls @ 200 mls/hr IVPB Q8H [facility]; Protocol Last Admin: 02/08/18 11:30 Dose: 200 mls/hr Doxycycline Hyclate 100 mg/ (Sodium Chloride) 100 mls @ 100 mls/hr IVPB Q12H [facility]; Protocol Last Admin: 02/08/18 09:30 Dose: 100 mls/hr Lorazepam (Ativan) 1 mg PO BID PRN PRN Reason: Agitation Mirtazapine (Remeron) 45 mg PO HS [facility] Last Admin: 02/07/18 22:21 Dose: 45 mg Venlafaxine HCl (Effexor Xr) 225 mg PO QAM [facility] Last Admin: 02/08/18 10:00 Dose: 225 mg - Labs Labs: 02/07/18 17:47 02/08/18 08:04 PT 14.8 SECONDS (9.7-12.2) H 02/06/18 11:39 INR 1.4 02/06/18 11:39 APTT 34 SECONDS (21-34) 02/06/18 11:39
--- NOTE | 2018-02-08 15:18 | CP.PCM.PN ---
Subjective - Date & Time of Evaluation Date of Evaluation: 02/08/18 Time of Evaluation: 15:18 - Subjective Subjective: pt is feeling better, no sob, no cp, no edema of legs Objective - Vital Signs/Intake and Output Vital Signs (last 24 hours): Temp Pulse Resp BP Pulse Ox 98.4 F 80 20 117/55 L 94 L 02/08/18 08:40 02/08/18 08:40 02/08/18 08:40 02/08/18 08:40 02/08/18 08:40 Intake and Output: 02/08/18 02/08/18 06:59 18:59 Intake Total 1225 Output Total 800 Balance 425 - Medications Medications: Current Medications Apixaban (Eliquis) 2.5 mg PO BID [facility] Last Admin: 02/08/18 10:00 Dose: 2.5 mg Betamethasone/Clotrimazole (Lotrisone) 0 gm TOP BID [facility] Last Admin: 02/08/18 11:31 Dose: 1 applic Sodium Chloride (Sodium Chloride 0.9%) 1,000 mls @ 75 mls/hr IV .[id number] [facility] Last Admin: 02/08/18 10:35 Dose: 75 mls/hr Piperacillin Sod/Tazobactam (Sod 3.375 gm/ Sodium Chloride) 100 mls @ 200 mls/hr IVPB Q8H [facility]; Protocol Last Admin: 02/08/18 11:30 Dose: 200 mls/hr Doxycycline Hyclate 100 mg/ (Sodium Chloride) 100 mls @ 100 mls/hr IVPB Q12H [facility]; Protocol Last Admin: 02/08/18 09:30 Dose: 100 mls/hr Lorazepam (Ativan) 1 mg PO BID PRN PRN Reason: Agitation Mirtazapine (Remeron) 45 mg PO HS [facility] Last Admin: 02/07/18 22:21 Dose: 45 mg Venlafaxine HCl (Effexor Xr) 225 mg PO QAM [facility] Last Admin: 02/08/18 10:00 Dose: 225 mg - Labs Labs: 02/07/18 17:47 02/08/18 08:04 PT 14.8 SECONDS (9.7-12.2) H 02/06/18 11:39 INR 1.4 02/06/18 11:39 APTT 34 SECONDS (21-34) 02/06/18 11:39 - Constitutional Appears: Well, Non-toxic - Head Exam Head Exam: ATRAUMATIC, NORMAL INSPECTION, NORMOCEPHALIC - Eye Exam Eye Exam: EOMI, Normal appearance, PERRL Pupil Exam: NORMAL ACCOMODATION, PERRL - ENT Exam ENT Exam: Mucous Membranes Moist, Normal Exam - Neck Exam Neck Exam: Full ROM, Normal Inspection - Respiratory Exam Respiratory Exam: Clear to Ausculation Bilateral, NORMAL BREATHING PATTERN - Cardiovascular Exam Cardiovascular Exam: REGULAR RHYTHM, +S1, +S2 - GI/Abdominal Exam GI & Abdominal Exam: Soft, Normal Bowel Sounds - Rectal Exam Rectal Exam: Deferred - Extremities Exam Extremities Exam: Full ROM, Normal Inspection - Neurological Exam Neurological Exam: Alert, Awake, CN II-XII Intact Additional comments: oriented x2 Assessment and Plan - Assessment and Plan (Free Text) Plan: 77 yo female with multiple medical problems was admitted with decreased po intake, increased bun/cr , hypercalcemia 1. Oni on ckd-3 2. dehydration 3. hypercalemia calcium is slowly improving c/w iv hydration f/u bmp, ca level renal function is improving
--- NOTE | 2018-02-08 23:57 | CP.PCM.PN ---
Subjective - Date & Time of Evaluation Date of Evaluation: 02/08/18 Time of Evaluation: 23:56 - Subjective Subjective: CHIEF COMPLAINTS TODAY : afebrile, vss More responsive, less anxious States feeling better. ROS. HEENT : N. Resp : No cough, wheezing ,pleuritic CP ,or hemoptysis Cardio : No anginal CP, PND, orthopnea, palpitation GI : No abd.pain, n/v ,diarrhea or GI bleeding . 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 Musculoskel : No joint swelling , Derm : No rash Psych : Normal affect. Ext : No swelling ,calf pain PE. Pt. is alert awake in no distress. V.S As noted in the chart Head ,ear nose,throat and eyes : Normal. Neck : Supple with normal carotids. Lungs: Clear air entry. Heart : S1 & S2 normal with S4. No murmur. Abd : Soft non tender with normal bowel sounds. Neuro : Moves all ext. with no localized deficit. Ext : No edema with intact pulses.Non tender calves Derm : No rashes or decubitus ulcer. LABS/RADIOLOGY: reviewed. URINE CULTURE 02/06/18 +[facility] b. Urine culture 02/08/18-pending. Objective - Vital Signs/Intake and Output Vital Signs (last 24 hours): Temp Pulse Resp BP Pulse Ox 97.6 F 82 20 143/82 95 02/08/18 15:00 02/08/18 15:00 02/08/18 15:00 02/08/18 15:00 02/08/18 15:00 Intake and Output: 02/08/18 02/09/18 18:59 06:59 Output Total 450 Balance -450 - Medications Medications: Current Medications Apixaban (Eliquis) 2.5 mg PO BID [facility] Last Admin: 02/08/18 19:32 Dose: 2.5 mg Betamethasone/Clotrimazole (Lotrisone) 0 gm TOP BID [facility] Last Admin: 02/08/18 19:34 Dose: 1 applic Sodium Chloride (Sodium Chloride 0.9%) 1,000 mls @ 75 mls/hr IV .[id number] [facility] Last Admin: 02/08/18 23:20 Dose: Not Given Piperacillin Sod/Tazobactam (Sod 3.375 gm/ Sodium Chloride) 100 mls @ 200 mls/hr IVPB Q8H [facility]; Protocol Last Admin: 02/08/18 19:32 Dose: 200 mls/hr Doxycycline Hyclate 100 mg/ (Sodium Chloride) 100 mls @ 100 mls/hr IVPB Q12H [facility]; Protocol Last Admin: 02/08/18 20:55 Dose: 100 mls/hr Lorazepam (Ativan) 1 mg PO BID PRN PRN Reason: Agitation Mirtazapine (Remeron) 45 mg PO HS [facility] Last Admin: 02/08/18 21:54 Dose: 45 mg Venlafaxine HCl (Effexor Xr) 225 mg PO QAM [facility] Last Admin: 02/08/18 10:00 Dose: 225 mg - Labs Labs: 02/07/18 17:47 02/08/18 08:04 PT 14.8 SECONDS (9.7-12.2) H 02/06/18 11:39 INR 1.4 02/06/18 11:39 APTT 34 SECONDS (21-34) 02/06/18 11:39 Assessment and Plan (1) Sepsis Assessment & Plan: BLOOD CULTURES NEGATIVE TO DATE. Status: Acute (2) Change in mental status Status: Acute (3) UTI (urinary tract infection) Status: Acute (4) Renal insufficiency Status: Acute (5) A-fib Status: Chronic (6) HTN (hypertension) Status: Chronic (7) Obesity Status: Chronic (8) DM type 2 (diabetes mellitus, type 2) Status: Chronic - Assessment and Plan (Free Text) Plan: CONTINUE iv zOSYN 3.375 EVERY 8 HOURLY 02/06/18 ON IV DOXYCYCLINE 100 MG iv PIGGYBACK 8 HOURLY FOR NOW WHILE AWAITING CULTURES. 02/07/18. CT OF THE CHEST, ABDOMEN AND PELVIS WITHOUT CONTRAST -P REPEAT UA/URINE CULTURE -CLEAN CATCH TODAY BEFORE INITIATING DOXYCYCLINE.-P iv FLUIDS PER RENAL.
[2018-02-09] MEDS: Piperacillin/Tazobact 3.375 GM in Sodium Chloride 100 ML IVPB SCH ×3 (03:36→19:56)
[2018-02-09 08:02] LABS: BASO % 0.7 % (0.0-2.0); EOS # 0.2 K/uL (0.0-0.7); EOS % 3.5 % (0.0-4.0); HEMOGLOBIN 11.9 g/dL (11.0-16.0); LYMPH # 1.7 K/uL (1.0-4.3); LYMPH % 25.6 % (20.0-40.0); MEAN CELL VOLUME 93.3 fL (81.0-99.0); MEAN CORPUSCULAR HEMOGLOBIN 31.3 pg (27.0-31.0); MEAN CORPUSCULAR HGB CONC 33.5 g/dL (33.0-37.0); MEAN PLATELET VOLUME 7.2 fL (7.2-11.7); MONO # 0.6 K/uL (0.0-0.8); MONO % 9.2 % (0.0-10.0); NEUT # 4.1 K/uL (1.8-7.0); NRBC % 0.1 % (0.0-2.0); RBC 3.81 Mil/uL (3.80-5.20); RED CELL DISTRIBUTION WIDTH 15.9 % (11.5-14.5); WHITE BLOOD COUNT 6.6 K/uL (4.8-10.8)
[2018-02-09 08:25] LABS: ALBUMIN 3.5 g/dL (3.5-5.0); CALCIUM 9.8 mg/dl (8.6-10.4)
[2018-02-09] MEDS: Venlafaxine 75 mg ER Cap PO SCH (09:46)
[2018-02-09] MEDS: Clotrimazole/Betamethasone Cream(15 gm) TOP SCH ×2 (11:47→19:55)
[2018-02-09] MEDS: Sodium Chloride 0.9% 1,000 ML IV SCH (12:45)
--- NOTE | 2018-02-09 17:10 | CP.PCM.PN ---
Subjective - Date & Time of Evaluation Date of Evaluation: 02/09/18 Time of Evaluation: 17:09 - Subjective Subjective: pt is seen and examined by me, pt is feeling better, no sob, no cp c/w pt's daughter at bed side Objective - Vital Signs/Intake and Output Vital Signs (last 24 hours): Temp Pulse Resp BP Pulse Ox 98.2 F 77 20 140/73 96 02/09/18 15:00 02/09/18 15:00 02/09/18 15:00 02/09/18 15:00 02/09/18 15:00 Intake and Output: 02/09/18 02/09/18 06:59 18:59 Intake Total 1200 Output Total 1450 Balance -250 - Medications Medications: Current Medications Apixaban (Eliquis) 2.5 mg PO BID [facility] Last Admin: 02/09/18 09:46 Dose: 2.5 mg Betamethasone/Clotrimazole (Lotrisone) 0 gm TOP BID [facility] Last Admin: 02/09/18 11:47 Dose: 1 applic Piperacillin Sod/Tazobactam (Sod 3.375 gm/ Sodium Chloride) 100 mls @ 200 mls/hr IVPB Q8H [facility]; Protocol Last Admin: 02/09/18 11:50 Dose: 200 mls/hr Doxycycline Hyclate 100 mg/ (Sodium Chloride) 100 mls @ 100 mls/hr IVPB Q12H [facility]; Protocol Last Admin: 02/09/18 08:40 Dose: 100 mls/hr Lorazepam (Ativan) 1 mg PO BID PRN PRN Reason: Agitation Last Admin: 02/09/18 12:18 Dose: 1 mg Mirtazapine (Remeron) 45 mg PO HS [facility] Last Admin: 02/08/18 21:54 Dose: 45 mg Venlafaxine HCl (Effexor Xr) 225 mg PO QAM [facility] Last Admin: 02/09/18 09:46 Dose: 225 mg - Labs Labs: 02/09/18 07:52 02/09/18 07:52 PT 14.8 SECONDS (9.7-12.2) H 02/06/18 11:39 INR 1.4 02/06/18 11:39 APTT 34 SECONDS (21-34) 02/06/18 11:39 - Constitutional Appears: Well, Non-toxic - Head Exam Head Exam: ATRAUMATIC, NORMAL INSPECTION, NORMOCEPHALIC - Eye Exam Eye Exam: EOMI, Normal appearance, PERRL Pupil Exam: NORMAL ACCOMODATION, PERRL - ENT Exam ENT Exam: Mucous Membranes Moist, Normal Exam - Neck Exam Neck Exam: Full ROM, Normal Inspection - Respiratory Exam Respiratory Exam: Clear to Ausculation Bilateral, NORMAL BREATHING PATTERN - Cardiovascular Exam Cardiovascular Exam: REGULAR RHYTHM, +S1, +S2 - Rectal Exam Rectal Exam: Deferred - Neurological Exam Neurological Exam: Alert, Awake, CN II-XII Intact Additional comments: oriented x 2 - Skin Skin Exam: Normal Color Assessment and Plan - Assessment and Plan (Free Text) Assessment: 77 yo female with multiple medical problems was admitted with decreased po intake, increased bun/cr , hypercalcemia 1. Oni on ckd-3 2. dehydration 3. hypercalemia sec to dehydration and po supplement calcium is improved, wnl c/w iv hydration f/u bmp, ca level in am renal function is stable d/w pt's daughter at bed side pt was taking oscal with vit.d 1 tab po bid
[2018-02-10] MEDS: Venlafaxine 75 mg ER Cap PO SCH (10:50)
[2018-02-10] MEDS: Clotrimazole/Betamethasone Cream(15 gm) TOP SCH (10:55)
--- NOTE | 2018-02-10 11:40 | CP.PCM.PN ---
Subjective - Date & Time of Evaluation Date of Evaluation: 02/10/18 Time of Evaluation: 11:40 Objective - Vital Signs/Intake and Output Vital Signs (last 24 hours): Temp Pulse Resp BP Pulse Ox 98.2 F 85 20 169/92 H 97 02/10/18 08:30 02/10/18 08:30 02/10/18 08:30 02/10/18 08:30 02/10/18 08:30 Intake and Output: 02/10/18 02/10/18 06:59 18:59 Output Total 550 Balance -550 - Medications Medications: Current Medications Apixaban (Eliquis) 2.5 mg PO BID [facility] Last Admin: 02/10/18 10:55 Dose: 2.5 mg Betamethasone/Clotrimazole (Lotrisone) 0 gm TOP BID [facility] Last Admin: 02/10/18 10:55 Dose: 1 applic Doxycycline Hyclate 100 mg/ (Sodium Chloride) 100 mls @ 100 mls/hr IVPB Q12H [facility]; Protocol Last Admin: 02/10/18 08:25 Dose: 100 mls/hr Lorazepam (Ativan) 1 mg PO BID PRN PRN Reason: Agitation Last Admin: 02/09/18 12:18 Dose: 1 mg Mirtazapine (Remeron) 45 mg PO HS [facility] Last Admin: 02/09/18 21:57 Dose: 45 mg Venlafaxine HCl (Effexor Xr) 225 mg PO QAM [facility] Last Admin: 02/10/18 10:50 Dose: 225 mg - Labs Labs: 02/09/18 07:52 02/09/18 07:52 PT 14.8 SECONDS (9.7-12.2) H 02/06/18 11:39 INR 1.4 02/06/18 11:39 APTT 34 SECONDS (21-34) 02/06/18 11:39 Assessment and Plan (1) Sepsis Status: Acute (2) Change in mental status Status: Acute (3) UTI (urinary tract infection) Status: Acute (4) Renal insufficiency Status: Acute (5) A-fib Status: Chronic (6) HTN (hypertension) Status: Chronic (7) Obesity Status: Chronic (8) DM type 2 (diabetes mellitus, type 2) Status: Chronic
--- NOTE | 2018-02-10 14:13 | CP.PCM.PN ---
Subjective - Date & Time of Evaluation Date of Evaluation: 02/10/18 Time of Evaluation: 14:13 - Subjective Subjective: 77-year-old female with a history of hypertension diabetes Crory artery disease high cholesterol atrial fibrillation pacemaker, V. tach and is status post AICD, anxiety, depression, Arthritis, weakness and dementia was admitted with lisandroka ness, decreased po intake and increased bun/cr, hypercalcemia pt is seen and examined by me, pt is feeling better, no sob, no cp decreased po intake as per RN Objective - Vital Signs/Intake and Output Vital Signs (last 24 hours): Temp Pulse Resp BP Pulse Ox 98.2 F 85 20 169/92 H 97 02/10/18 08:30 02/10/18 08:30 02/10/18 08:30 02/10/18 08:30 02/10/18 08:30 Intake and Output: 02/10/18 02/10/18 06:59 18:59 Output Total 550 Balance -550 - Medications Medications: Current Medications Apixaban (Eliquis) 2.5 mg PO BID [facility] Last Admin: 02/10/18 10:55 Dose: 2.5 mg Betamethasone/Clotrimazole (Lotrisone) 0 gm TOP BID [facility] Last Admin: 02/10/18 10:55 Dose: 1 applic Doxycycline Hyclate 100 mg/ (Sodium Chloride) 100 mls @ 100 mls/hr IVPB Q12H [facility]; Protocol Last Admin: 02/10/18 08:25 Dose: 100 mls/hr Lorazepam (Ativan) 1 mg PO BID PRN PRN Reason: Agitation Last Admin: 02/09/18 12:18 Dose: 1 mg Mirtazapine (Remeron) 45 mg PO HS [facility] Last Admin: 02/09/18 21:57 Dose: 45 mg Venlafaxine HCl (Effexor Xr) 225 mg PO QAM [facility] Last Admin: 02/10/18 10:50 Dose: 225 mg - Labs Labs: 02/09/18 07:52 02/09/18 07:52 PT 14.8 SECONDS (9.7-12.2) H 02/06/18 11:39 INR 1.4 02/06/18 11:39 APTT 34 SECONDS (21-34) 02/06/18 11:39 - Constitutional Appears: Well, No Acute Distress - Head Exam Head Exam: ATRAUMATIC, NORMAL INSPECTION, NORMOCEPHALIC - Eye Exam Eye Exam: EOMI, Normal appearance, PERRL Pupil Exam: NORMAL ACCOMODATION - ENT Exam ENT Exam: Mucous Membranes Moist, Normal Exam - Neck Exam Neck Exam: Full ROM, Normal Inspection - Respiratory Exam Respiratory Exam: Clear to Ausculation Bilateral, NORMAL BREATHING PATTERN - Cardiovascular Exam Cardiovascular Exam: REGULAR RHYTHM, +S1, +S2 - GI/Abdominal Exam GI & Abdominal Exam: Soft, Normal Bowel Sounds - Rectal Exam Rectal Exam: Deferred - Extremities Exam Extremities Exam: Normal Inspection - Neurological Exam Neurological Exam: Alert, Awake, CN II-XII Intact Additional comments: oriented x2, non focal neuro exam, Assessment and Plan - Assessment and Plan (Free Text) Assessment: 77 yo female with htn, dm, ckd, afib, s/p aicd, dementia, depression was admitted with decreased po intake, increased bun/cr , hypercalcemia 1. Oni on ckd-3 2. Dehydration 3. Hypercalemia sec to dehydration and po supplement calcium is improved, wnl c/w iv hydration, encourage po intake f/u bmp, ca level in am renal function is stable possible d/c this evening avoid po calcium supplement at this time
[2018-02-10 15:47] VITALS: BP 154/81; PULSE 90; TEMP 97.9; O2SAT 93
--- NOTE | 2018-02-10 17:05 | CP.PCM.PN ---
Subjective - Date & Time of Evaluation Date of Evaluation: 02/10/18 Time of Evaluation: 17:05 - Subjective Subjective: alert, awake, no sob or chest pains, NAD. Objective - Vital Signs/Intake and Output Vital Signs (last 24 hours): Temp Pulse Resp BP Pulse Ox 97.9 F 90 20 154/81 H 93 L 02/10/18 15:00 02/10/18 15:00 02/10/18 15:00 02/10/18 15:00 02/10/18 15:00 Intake and Output: 02/10/18 02/10/18 06:59 18:59 Intake Total 60 Output Total 550 Balance -550 60 - Labs Labs: 02/09/18 07:52 02/09/18 07:52 PT 14.8 SECONDS (9.7-12.2) H 02/06/18 11:39 INR 1.4 02/06/18 11:39 APTT 34 SECONDS (21-34) 02/06/18 11:39 Assessment and Plan - Assessment and Plan (Free Text) Assessment: 77 year old female admitted with sepsis, UTI with ESBL, second culture negative for UTI, seen and examine. Alert and orientedx3, denies any pain or distress, no fever. Discussed with DR Ernst and DR Lunsford, plan to discharge home on oral doxycycline for 5 days. Advised to follow up in the office with PMD in 1 week.
--- NOTE | 2018-02-11 09:36 | CP.PCM.DIS ---
Provider - Provider Date of Admission: 02/06/18 14:11 Attending physician: Roz Lunsford MD Time Spent in preparation of Discharge (in minutes): 45 Hospital Course - Lab Results Lab Results: Micro Results 02/06/18 12:07 Blood Blood Culture - Preliminary NO GROWTH AFTER 4 DAYS 02/06/18 12:01 Blood Blood Culture - Preliminary NO GROWTH AFTER 4 DAYS 02/08/18 06:34 Urine Urine Culture - Final No Growth (<1,000 CFU/ML) 02/06/18 12:04 Urine,Catheterized Urine Culture - Final Escherichia Coli Beta Hemolytic Strep Group B Most Recent Lab Values WBC 6.6 K/uL (4.8-10.8) 02/09/18 07:52 RBC 3.81 Mil/uL (3.80-5.20) 02/09/18 07:52 Hgb 11.9 g/dL (11.0-16.0) 02/09/18 07:52 Hct 35.5 % (34.0-47.0) 02/09/18 07:52 MCV 93.3 fL (81.0-99.0) 02/09/18 07:52 MCH 31.3 pg (27.0-31.0) H 10 07:52 MCHC 33.5 g/dL (33.0-37.0) 02/09/18 07:52 RDW 15.9 % (11.5-14.5) H 02/09/18 07:52 Plt Count 246 K/uL (130-400) 02/09/18 07:52 MPV 7.2 fL (7.2-11.7) 02/09/18 07:52 Neut % (Auto) 61.0 % (50.0-75.0) 02/09/18 07:52 Lymph % (Auto) 25.6 % (20.0-40.0) 02/09/18 07:52 Tillman % (Auto) 9.2 % (0.0-10.0) 02/09/18 07:52 Eos % (Auto) 3.5 % (0.0-4.0) 02/09/18 07:52 Baso % (Auto) 0.7 % (0.0-2.0) 02/09/18 07:52 Neut # (Auto) 4.1 K/uL (1.8-7.0) 02/09/18 07:52 Lymph # (Auto) 1.7 K/uL (1.0-4.3) 02/09/18 07:52 Tillman # (Auto) 0.6 K/uL (0.0-0.8) 02/09/18 07:52 Eos # (Auto) 0.2 K/uL (0.0-0.7) 02/09/18 07:52 Baso # (Auto) 0.0 K/uL (0.0-0.2) 02/09/18 07:52 PT 14.8 SECONDS (9.7-12.2) H 02/06/18 11:39 INR 1.4 02/06/18 11:39 APTT 34 SECONDS (21-34) 02/06/18 11:39 pO2 15 mm/Hg (30-55) L 02/06/18 14:39 VBG pH 7.31 (7.32-7.43) L 02/06/18 14:39 VBG pCO2 78 mmHg (40-60) H* 02/06/18 14:39 VBG HCO3 30.4 mmol/L 02/06/18 14:39 VBG Total CO2 41.7 mmol/L (22-28) H 02/06/18 14:39 VBG O2 Sat (Calc) 21.2 % (40-65) L 02/06/18 14:39 VBG Base Excess 9.8 mmol/L (0.0-2.0) H 02/06/18 14:39 VBG Potassium 3.4 mmol/L (3.6-5.2) L 02/06/18 14:39 Sodium 139.0 mmol/l (132-148) 02/06/18 14:39 Chloride 99.0 mmol/L (98-107) 02/06/18 14:39 Glucose 185 mg/dl (65-105) H 02/06/18 14:39 Lactate 3.1 mmol/L (0.7-2.1) H 02/06/18 14:39 Crit Value Called To 02/06/18 14:39 Crit Value Called By Chapincito [email or web address],sales operations consultant 02/06/18 14:39 Crit Value Read Back Y 02/06/18 14:39 Blood Gas Notified Time 1445 02/06/18 14:39 Sodium 143 mmol/L (132-148) 02/09/18 07:52 Potassium 4.0 mmol/L (3.6-5.2) 02/09/18 07:52 Chloride 103 mmol/L (98-107) 02/09/18 07:52 Carbon Dioxide 30 mmol/L (22-30) 02/09/18 07:52 Anion Gap 14 (10-20) 02/09/18 07:52 BUN 19 mg/dL (7-17) H 02/09/18 07:52 Creatinine 2.1 mg/dL (0.7-1.2) H 02/09/18 07:52 Est GFR ( Amer) 27 02/09/18 07:52 Est GFR (Non-Af Amer) 23 02/09/18 07:52 POC Glucose (mg/dL) 137 mg/dL (65-110) H 02/10/18 15:36 Random Glucose 152 mg/dL (65-105) H 02/09/18 07:52 Calcium 9.8 mg/dl (8.6-10.4) 02/09/18 07:52 Phosphorus 2.7 mg/dL (2.5-4.5) 02/07/18 17:47 Magnesium 2.0 mg/dL (1.6-2.3) 02/07/18 17:47 Total Bilirubin 0.5 mg/dL (0.2-1.3) 02/09/18 07:52 AST 29 U/L (14-36) 02/09/18 07:52 ALT 28 U/L (9-52) 02/09/18 07:52 Alkaline Phosphatase 80 U/L (38-126) 02/09/18 07:52 Troponin I 0.0260 ng/mL (0.00-0.120) 02/06/18 11:39 NT-Pro-B Natriuret Pep 1400 pg/mL (0-900) H 02/06/18 11:39 Total Protein 6.9 g/dL (6.3-8.3) 02/09/18 07:52 Albumin 3.5 g/dL (3.5-5.0) 02/09/18 07:52 Globulin 3.5 gm/dL (2.2-3.9) 02/09/18 07:52 Albumin/Globulin Ratio 1.0 (1.0-2.1) 02/09/18 07:52 25-OH Vitamin D Total 36.0 NG/ML (30.0-100.0) 02/06/18 21:42 Calcium (PTH Intact) 12.8 mg/dL (8.6-10.4) H 02/06/18 18:28 PTH w/Ion &Tot Calcium 3 pg/mL (14-64) L 02/06/18 18:28 Venous Blood Potassium 3.4 mmol/L (3.6-5.2) L 02/06/18 14:39 Urine Color Straw (YELLOW) 02/08/18 06:34 Urine Clarity Clear (Clear) 02/08/18 06:34 Urine pH 7.0 (5.0-8.0) 02/08/18 06:34 Ur Specific [place] 1.006 (1.003-1.030) 02/08/18 06:34 Urine Protein Negative mg/dL (NEGATIVE) 02/08/18 06:34 Urine Glucose (UA) 1+ mg/dL (Normal) 02/08/18 06:34 Urine Ketones Negative mg/dL (NEGATIVE) 02/08/18 06:34 Urine Blood Trace (NEGATIVE) H 02/08/18 06:34 Urine Nitrate Negative (NEGATIVE) 02/08/18 06:34 Urine Bilirubin Negative (NEGATIVE) 02/08/18 06:34 Urine Urobilinogen Normal mg/dL (0.2-1.0) 02/08/18 06:34 Ur Leukocyte Esterase 3+ Pastora/uL (Negative) H 02/08/18 06:34 Urine WBC (Auto) 5 /hpf (0-5) 02/08/18 06:34 Urine RBC (Auto) 1 /hpf (0-3) 02/08/18 06:34 Urine WBC Clumps (Auto) Few /hpf (NONE) H 02/06/18 12:04 Ur Squamous Epith Cells < 1 /hpf (0-5) 02/06/18 12:04 Urine Bacteria Rare (<OCC) 02/08/18 06:34 Hyaline Casts 6-10 /lpf (0-2) H 02/06/18 12:04 - Hospital Course Hospital Course: Chief complain: Patient was having increasing weakness, fatigue and feeling dosing of. HPI: 77-year-old female with a history of hypertension diabetes Crory artery disease high cholesterol atrial fibrillation pacemaker, V. tach and is status post AICD, anxiety, depression. Arthritis, weakness and dementia. Patient was in her usual state of health. For 3 days she was started having some slowing in her activities, this morning time she was not responding. She was not eating well. According to the patient's daughter she was having increasing lethargic. She was not eating anything this morning. When she is trying to hold something she is dropping. She was very poorly responding this morning. So Called ambulance, brought into the emergency room. Patient was continued to have altered mental status in the emergency room. Evaluation was done. CAT scan were negative Suspected urinary tract infection, needed hospitalization. Past medical history: Hypertension, diabetes, high cholesterol, CAD, atrial fibrillation, V. tach, status post ACD, depression and anxiety Allergies no known drug allergy Personal history: Lifelong nonsmoker nonalcoholic Patient lives in the family members. Surgical history: Bilateral knee replacement. Pacemaker ACD Family history noncontributory Review of systems noted from the chart. Mild headache. Dementia noted, no chest pain, shortness of breath noted occasionally. Complaining of generalized body pain. Patient had altered mental status yesterday, currently feeling well. Examination: Vital signs noted to be on the low blood pressure side. Chest good air entry Regular heart sound, pacemaker Abdomen was not tender. Obesity present. Patient has bilateral leg edema. Labs reviewed Elevated Bun and creatinine compared to baseline noted Also elevated at calcium level noted CAT scan of the head is negative, chest x-ray nonspecific Assessment and recommendation: 77-year-old female with a history of hypertension diabetes high cholesterol CAD status post ACD. Atrial fibrillation. Admitted now with a possible urinary tract infection, contributing the altered mental status. Associated with worsening dehydration, and hypercalcemia. Is unclear at this time about the hypercalcemia most likely dehydration. Will hydrate the patient. Altered mental status most likely related to electrolyte imbalance associated urinary tract infection. DVT GI prophylaxis. Spoke to the patient's daughter. Infectious disease, nephrology evaluation and will follow-up the patient Course in the hospital: Patient admitted with the severe hypercalcemia. Severe dehydration. Started on intravenous IV fluid. Suspected urinary tract infection, started on antibiotic. Infectious disease, nephrology valuation was called in. Patient underwent a CT scan of the abdomen, pelvis and chest to rule out any underlying malignancy. But CAT scan were negative for any mass lesions. After discussion with nephrology, the hypercalcemia most likely related to dehydration, which improved after intravenous IV hydration. Patient urine culture showing evidence of Streptococcus, Escherichia coli, sensitive with the doxycycline. Discussed with the ID, patient will benefit having doxycycline 100 mg twice a day for one more week. I also discussed with the patient's family especially patient's daughter Mrs. Cedeno, and advised her that she needs to continue antibiotic for one more week. Will follow her as an outpatient. I also advised the family regarding dehydration. Regular diet. She will continue the rest of the medication Final diagnosis: Severe dehydration, urinary tract infection, urosepsis. Hypercalcemia. Altered mental status. Hypertension diabetes depression. Patient also has a history of V. tach, ACD. Discharge Exam - Head Exam Head Exam: ATRAUMATIC, NORMAL INSPECTION, NORMOCEPHALIC Discharge Plan - Discharge Medications Prescriptions: Doxycycline Hyclate 100 mg PO BID #10 capsule - Follow Up Plan Condition: GUARDED Disposition: HOME/ ROUTINE Instructions: Heart Healthy Diet, Heart Failure, Adult (DC), Sepsis, Adult (DC), Doxycycline Additional Instructions: Doxycycline 100mg po bid x5 days Follow up with Primary Medical Doctor in 1 week Referrals: Roz Lunsford MD [Staff Provider] -
--- NOTE | 2018-02-11 09:36 | CP.PCM.PN ---
Subjective - Date & Time of Evaluation Date of Evaluation: 02/09/18 Time of Evaluation: 09:36 - Subjective Subjective: Patient is feeling well. I spoke to the patient's daughter in detail. Urine culture showing evidence of Escherichia coli. On antibiotic. Infectious disease evaluation is ongoing. On examination: Vital signs stable. Chest good air entry regular heart sound. The patient has a 1+ pedal edema. Receiving IV fluid. Tolerating the liquid diet. No diarrhea noted Assessment: 77-year-old female with history of hypertension. Atrial fibrillation. ACD. On anticoagulation. Will continue the current treatment and will follow the patient Objective - Vital Signs/Intake and Output Vital Signs (last 24 hours): Temp Pulse Resp BP Pulse Ox 97.9 F 90 20 154/81 H 93 L 02/10/18 15:00 02/10/18 15:00 02/10/18 15:00 02/10/18 15:00 02/10/18 15:00 - Labs Labs: 02/09/18 07:52 02/09/18 07:52 PT 14.8 SECONDS (9.7-12.2) H 02/06/18 11:39 INR 1.4 02/06/18 11:39 APTT 34 SECONDS (21-34) 02/06/18 11:39
--- NOTE | 2018-02-11 23:36 | CARD ---
APPROVED REPORT Date of service: 02/06/2018 EKG Measurement Heart [id number] <Conclusion> Atrial-sensed ventricular-paced rhythm with occasional premature ventricular complexes Abnormal ECG
--- NOTE | 2018-02-12 09:19 | PQF ---
PROVIDER RESPONSE TEXT: none REVIEWER QUERY TEXT: Rule Out Sepsis Clarification Rule out Sepsis is documented in the Medical Record. Please clarify whether: -- Patient has sepsis - Please document confirmed, suspected or probable causative organism - Please document confirmed, suspected or probable localized infection - Please clarify if sepsis is related to a device - Please clarify if sepsis was present on admission -- Sepsis was ruled out (include corresponding diagnosis for patient?s clinical picture and treatment ) -- Patient had sepsis which is resolved -- Other, please specify The patient's Clinical Indicators include: 77 y/o Female admitted with Altered mental Status with PMHx of HTN/CHF/CKD, HLD , A fib , CAD. In The ER found to have elevated Serum lactate of 4.5 elevated Creatinine of 2.2/BUN 25,GFR of 22 . Patient was therefore advised admission for possible Sepsis, questionable UTI as patient had Pyuria w ith WBC of 303,Patient was given a dose of Rocephin 1g and started on Zosyn 3.375 every 8 hourly. 02/08 Inf. Dis. Consult Jennifer Ernst - Assessment - Sepsis ; Toxic Metabolic Encephalopaty etc. Patient with Dehydration;Toxic metaboic Encephalopathy ; PHILIP; Dehydration; Uti. Query created by: Diana Roberts on 02/12/2018 7:39 AM Electronically signed by: Roz Lunsford MD 02/12/2018 9:17 AM
== END 2018-02-10 16:54 | disposition home or self-care (01) | DRG 689 ==
LOC: C.ER 11:03 → C.9E 14:11 → C.6T 14:38
PROVIDERS: ADMIT Internal Medicine; ATTEND Internal Medicine
DX: N39.0 Urinary tract infection, site not specified (principal); G93.41 Metabolic encephalopathy; I13.0 Hypertensive heart and chronic kidney disease with heart failure and stage 1 through stage 4 chronic kidney disease, or unspecified chronic kidney disease; N17.9 Acute kidney failure, unspecified; E86.0 Dehydration; I50.9 Heart failure, unspecified; Z96.653 Presence of artificial knee joint, bilateral; E11.22 Type 2 diabetes mellitus with diabetic chronic kidney disease; E78.00 Pure hypercholesterolemia, unspecified; E66.9 Obesity, unspecified; F03.90 Unspecified dementia, unspecified severity, without behavioral disturbance, psychotic disturbance, mood disturbance, and anxiety; F32.9 Major depressive disorder, single episode, unspecified; F41.9 Anxiety disorder, unspecified; I25.10 Atherosclerotic heart disease of native coronary artery without angina pectoris; I48.91 Unspecified atrial fibrillation; Z74.01 Bed confinement status; Z95.0 Presence of cardiac pacemaker; Z95.1 Presence of aortocoronary bypass graft; N18.3 Chronic kidney disease, stage 3 (moderate); E83.52 Hypercalcemia; B96.20 Unspecified Escherichia coli [E. coli] as the cause of diseases classified elsewhere